=== PATIENT | female | born 1990 | race Caucasian/White ===

== ENCOUNTER → 2016-05-27 | Outpatient (CLI) | payer BC | END | disposition home or self-care (01) | LOC: MMGSC 10:59 | PROVIDERS: ATTEND Internal Medicine | DX: G47.419 Narcolepsy without cataplexy (principal) | CPT/HCPCS: 36415; 81383 ==

== ENCOUNTER → 2016-05-27 | Outpatient (CLI) | payer BC | END | disposition home or self-care (01) | LOC: MMGSC 11:34 | PROVIDERS: ATTEND Family Medicine | DX: R53.83 Other fatigue (principal); I10 Essential (primary) hypertension | CPT/HCPCS: 36415; 82306; 82607; 84439; 84443 ==

== ENCOUNTER → 2016-06-30 | Outpatient (CLI) | payer BC ==
--- NOTE | 2016-06-30 20:25 | PN ---
DATE OF SERVICE: 06/30/2016 This is a 25-year-old lady who has been followed in the sleep center for treatment of narcolepsy. At present patient is on treatment with modafinil, and with medication she feels better during the day; does not feel sleepiness. No side effects from medications. We reviewed results of the previous sleep studies again with the patient with relationship to her pulse rate. The sleep study showed that her basic pulse rate during the test was within normal range, around 60, but she had an increasing pulse rate in REM sleep. [place] Sleepiness Scale is 18. MEDICATIONS: 1. Adderall. Patient takes 10 mg twice a day. 2. Modafinil. She takes around 200 mg once a day. She is trying to take as little as possible. 3. Dyazide. 4. Melatonin. 5. Loratadine. 6. Fish oil. PHYSICAL EXAMINATION: Patient is in no distress. VITAL SIGNS: BP 127/84, HR 87, RR 16. Weight 134.8. BMI 22.8. Temperature 98.0. Oxygen saturation at room air 98%. HEENT: PERRLA, EOMI. Evaluation of oropharynx showed tongue protrudes midline; moderately low position of soft palate. NECK: Supple. No JVD. Thyroid is not palpable. LUNGS: Clear to percussion and to auscultation. Good air exchange. No wheezing or rhonchi. HEART: S1, S2 regular. No murmurs, gallops or rubs. ABDOMEN: Soft and nontender. Bowel sounds are present. No organomegaly appreciated. EXTREMITIES: No clubbing or cyanosis. [employer]: Awake, alert, and oriented x3. Cranial nerves 2 to 7 intact. There is no fasciculation or atrophy noted. No focal deficits observed. IMPRESSION: 1. Narcolepsy, controlled with small dose of Advil and modafinil. 2. History of swelling of the legs. 3. History of hypertension. 4. Status post tumor removed from the finger. 5. Status post hernia repair. 6. History of sinusitis. PLAN: 1. Patient will continue treatment with modafinil and Adderall. 2. Sleep hygiene with regular time in bed for at least 8 hours. 3. No driving if feeling any sleepiness. 4. Monitoring of the blood pressure. 5. Low-sodium diet. Thank you very much for allowing me to participate in the management of your patient. Sincerely, German Venegas MD, PhD, FAASM. Diplomat of [place] [employer], Sleep Medicine Board by [place] [employer], [place] [employer]
== END | disposition home or self-care (01) ==
LOC: SLEEP 13:15
PROVIDERS: ATTEND Internal Medicine
DX: G47.419 Narcolepsy without cataplexy (principal); Z79.899 Other long term (current) drug therapy

== ENCOUNTER 2016-12-04 09:59 | Emergency (ER) | payer BC ==
[2016-12-04] MEDS ORDERED: RX INFO: IV CONTRAST WAS GIVEN 1 EACH MISC MISCELLANE PRN (10:26)
[2016-12-04] MEDS ORDERED: SODIUM CHLORIDE 0.9% 1,000 ML IV ONE (10:26)
[2016-12-04] MEDS ORDERED: SODIUM CHLORIDE 0.9% 1,000 ML IV SCH (10:30)
--- NOTE | 2016-12-04 10:36 | ED ---
General Adult HPI - General Chief complaint: Eye Problems Stated complaint: Left Eye Swelling Time Seen by Provider: 12/04/16 10:18 Source: patient, RN notes reviewed, old records reviewed Mode of arrival: ambulatory Limitations: no limitations - History of Present Illness Initial comments: This is a 25-year-old female presenting to the emergency Department chief complaint of left eye swelling and pain for the past few days. Patient reports that initially started on Tuesday, she went to the urgent care yesterday was given a shot of antibiotics and was discharged on clindamycin. She reports she' s been taking 4 doses of clindamycin was told to come here if it was worsening. Patient reports that some the area seems to move cleared up however there is been some worsening swelling distally from the lesion. She reports that there feels that there is an abscess underneath her eyebrow. Denies any pain with extraocular eye movements. Patient reports that the swelling also is worse over her nose. Patient states that she is no history of diabetes, mild history of hypertension which she occasionally takes water pill for. Patient denies any recent fever or chills, chest pain or shortness breath. - Related Data Home Medications Medication Instructions Recorded Confirmed Clindamycin HCl 300 mg PO QID 12/04/16 12/04/16 Dextroamphetamine/Amphetamine 20 mg PO BID 12/04/16 12/04/16 [Adderall] Norethindrone-E.estradiol-Iron 1 tab PO DAILY 12/04/16 12/04/16 [Junel Fe 1 mg-20 Mcg Tablet] Triamterene-Hctz 37.5-25Mg 1 cap PO DAILY PRN 12/04/16 12/04/16 [Dyazide 37.5-25 Capsule] Previous Rx's Medication Instructions Recorded Tobramycin 0.3% Ophth Soln [Tobrex 1 drop LEFT EYE Q4H #1 bottle 12/04/16 0.3% Ophth Soln] methylPREDNISolone Dose Pack 4 mg PO DIRECTED #21 package 12/04/16 [Medrol Dose Pack] Allergies Allergy/AdvReac Type Severity Reaction Status Date / Time citalopram [From Celexa] AdvReac Altered Verified 12/04/16 12:09 Mental Status Review of Systems ROS Statement: Those systems with pertinent positive or pertinent negative responses have been documented in the HPI. ROS Other: All systems not noted in ROS Statement are negative. Past Medical History Past Medical History: Hypertension History of Any Multi-Drug Resistant Organisms: None Reported Past Surgical History: Hernia Repair Past Psychological History: No Psychological Hx Reported Smoking Status: Never smoker Past Alcohol Use History: Occasional Past Drug Use History: None Reported General Exam - General Exam Comments Initial Comments: This is a 25-year-old female. No acute distress. Limitations: no limitations General appearance: alert, in no apparent distress Head exam: Present: atraumatic, normocephalic, normal inspection Eye exam: Present: normal appearance, PERRL, EOMI, periorbital swelling (Left eye periorbital swelling. There is an area of firmness underneath the left eyebrow. There is some swelling extending into the left side of the nose.). Absent: scleral icterus, conjunctival injection ENT exam: Present: normal exam, mucous membranes moist Neck exam: Present: normal inspection Respiratory exam: Present: normal lung sounds bilaterally. Absent: respiratory distress, wheezes, rales, rhonchi, stridor Cardiovascular Exam: Present: regular rate, normal rhythm, normal heart sounds. Absent: systolic murmur, diastolic murmur, rubs, gallop, clicks GI/Abdominal exam: Present: soft, normal bowel sounds. Absent: distended, tenderness, guarding, rebound, rigid Extremities exam: Present: normal inspection, full ROM, normal capillary refill. Absent: tenderness, pedal edema, joint swelling, calf tenderness Back exam: Present: normal inspection Neurological exam: Present: alert, oriented X3, CN II-XII intact Psychiatric exam: Present: normal affect, normal mood Skin exam: Present: warm, dry, intact, normal color. Absent: rash Course Vital Signs 12/04/16 12/04/16 12/04/16 10:13 11:30 12:32 Temperature 97.9 F 98.0 F Pulse Rate 63 68 72 Respiratory 17 18 17 Rate Blood Pressure 125/79 126/83 129/77 O2 Sat by Pulse 100 98 100 Oximetry Medical Decision Making - Medical Decision Making This is a 25-year-old female presenting to the emergency Department chief complaint of left eye swelling and pain for the past few days. Patient reports that initially started on Tuesday, she went to the urgent care yesterday was given a shot of antibiotics and was discharged on clindamycin. She reports she' s been taking 4 doses of clindamycin was told to come here if it was worsening. Patient reports that some the area seems to move cleared up however there is been some worsening swelling distally from the lesion. Patient has evidence of cellulitis around right lower eyebrow and there is some swelling, likely related to depenedent edema underneath the orbit. No pain with eye movement. No nystagmus. Patient CT face with contrast shows left periorbital cellulitis, no focal abscess for drainage. Patient give IV solumedrol to help with swelling. Patient already is on clindamycin which is good coverage for cellulits. She does report that some areas have became better. Discussed I will discharge patient with medrol dose pack, and patient is to continue clindamycin as directed. Discussed close follow up with PCP and return paramteres were discussed. - Lab Data Result diagrams: 12/04/16 10:30 12/04/16 10:30 Lab Results 12/04/16 12/04/16 12/04/16 Range/Units 10:30 10:30 10:30 WBC 8.9 (3.8-10.6) k/uL RBC 4.21 (3.80-5.40) m/uL Hgb 13.4 (11.4-16.0) gm/dL Hct 39.9 (34.0-46.0) % MCV 94.6 (80.0-100.0) fL MCH 31.9 (25.0-35.0) pg MCHC 33.7 (31.0-37.0) g/dL RDW 13.6 (11.5-15.5) % Plt Count 200 (150-450) k/uL Neutrophils % 63 % Lymphocytes % 29 % Monocytes % 5 % Eosinophils % 1 % Basophils % 1 % Neutrophils # 5.6 (1.3-7.7) k/uL Lymphocytes # 2.6 (1.0-4.8) k/uL Monocytes # 0.4 (0-1.0) k/uL Eosinophils # 0.1 (0-0.7) k/uL Basophils # 0.0 (0-0.2) k/uL Sodium 141 (137-145) mmol/L Potassium 4.2 (3.5-5.1) mmol/L Chloride 108 H (98-107) mmol/L Carbon Dioxide 24 (22-30) mmol/L Anion Gap 9 mmol/L BUN 11 (7-17) mg/dL Creatinine 0.78 (0.52-1.04) mg/dL Est GFR (MDRD) Af Amer >60 (>60 ml/min/1.73 sqM) Est GFR (MDRD) Non-Af >60 (>60 ml/min/1.73 sqM) Glucose 72 L (74-99) mg/dL Plasma Lactic Acid Josue 1.1 (0.7-2.0) mmol/L Calcium 9.4 (8.4-10.2) mg/dL - Radiology Data Radiology results: report reviewed Left periorbital and preseptal edema correlating for cellulitis. Disposition Clinical Impression: Periorbital cellulitis of left eye Disposition: HOME SELF-CARE Condition: Good Additional Instructions: Patient is to continue to take the previously prescribed antibiotics. Do not miss a dose. Patient also can take the prescription steroid. Apply ice over the areas which is possible. If there is pain with any eye movements return to the emergency department and get reevaluated. Prescriptions: methylPREDNISolone Dose Pack [Medrol Dose Pack] 4 mg PO DIRECTED #21 package Tobramycin 0.3% Ophth Soln [Tobrex 0.3% Ophth Soln] 1 drop LEFT EYE Q4H #1 bottle Referrals: Zeenat Bustillo MD [Primary Care Provider] - 1-2 days Time of Disposition: 12:25
[2016-12-04 11:01] LABS: Basophils % (A) 1 %; Eosinophils # (A) 0.1 k/uL (0-0.7); Eosinophils % (A) 1 %; HCT 39.9 % (34.0-46.0); HDW 2.59; HGB 13.4 gm/dL (11.4-16.0); Luc # (Auto) 0.16; Luc % (Auto) 2; Lymphocytes # (A) 2.6 k/uL (1.0-4.8); Lymphocytes % (A) 29 %; MCH 31.9 pg (25.0-35.0); MCHC 33.7 g/dL (31.0-37.0); MCV 94.6 fL (80.0-100.0); Mean Platelet Volume 7.4; Monocytes # (A) 0.4 k/uL (0-1.0); Monocytes % (A) 5 %; Neutrophils # (A) 5.6 k/uL (1.3-7.7); Neutrophils % (A) 63 %; RBC 4.21 m/uL (3.80-5.40); RDW 13.6 % (11.5-15.5); WBC 8.9 k/uL (3.8-10.6); WBC (Perox) 8.63
[2016-12-04 11:07] LABS: Anion Gap 9 mmol/L; Blood Urea Nitrogen 11 mg/dL (7-17); Calcium 9.4 mg/dL (8.4-10.2); Carbon Dioxide 24 mmol/L (22-30); Chloride 108 mmol/L (98-107); Glucose 72 mg/dL (74-99); Non-African American GFR(MDRD) >60 (>60 ml/min/1.73 sqM); Potassium 4.2 mmol/L (3.5-5.1); Sodium 141 mmol/L (137-145)
--- NOTE | 2016-12-04 11:22 | CT ---
EXAMINATION TYPE: CT facial bones w con DATE OF EXAM: 12/04/2016 COMPARISON: NONE HISTORY: Left eye lid swelling-upper lid CT DLP: 468.0 mGycm Automated exposure control for dose reduction was used. CONTRAST: CT scan of the facial bones is performed with IV Contrast, patient injected with 100 mL of Omnipaque 300. TECHNIQUE: CT scan of the sinuses is performed without contrast, axial images are obtained, coronal r eformatted images are also reviewed. FINDINGS: Changes of mild ethmoidal chronic sinusitis noted. The ostiomeatal complex is patent bilate rally on the coronal images. Visualized portion of mastoid air cells show no abnormal opacification. The globes are intact bilate rally. There is preseptal edema on the left. Intraorbital structures have a normal appearance including the globe and optic nerve. Osseous structures intact. IMPRESSION: 1. Left periorbital and preseptal edema correlate for cellulitis.
[2016-12-04 12:34] VITALS: BP 129/77; PULSE 72; RESP 17; TEMP 98
== END 2016-12-04 12:38 | disposition home or self-care (01) ==
LOC: EC 09:59
DX: L03.213 Periorbital cellulitis (principal); I10 Essential (primary) hypertension; Z79.899 Other long term (current) drug therapy; Z88.8 Allergy status to other drugs, medicaments and biological substances
CPT/HCPCS: 36415; 70487; 80048; 83605; 85025; 87040; 96360; 99284

== ENCOUNTER → 2017-02-22 | Outpatient (CLI) | payer BC ==
[2017-02-22 19:41] LABS: Anion Gap 10 mmol/L; Blood Urea Nitrogen 13 mg/dL (7-17); Calcium 9.7 mg/dL (8.4-10.2); Carbon Dioxide 24 mmol/L (22-30); Chloride 105 mmol/L (98-107); Glucose 79 mg/dL (74-99); Non-African American GFR(MDRD) >60 (>60 ml/min/1.73 sqM); Potassium 3.7 mmol/L (3.5-5.1); Sodium 139 mmol/L (137-145)
[2017-02-23 16:47] LABS: ALT 33 U/L (9-52); AST 33 U/L (14-36)
== END | disposition home or self-care (01) ==
LOC: MMGSC 17:09
PROVIDERS: ATTEND Family Medicine
DX: Z51.81 Encounter for therapeutic drug level monitoring (principal)
CPT/HCPCS: 36415; 80048; 84450; 84460

== ENCOUNTER 2020-09-14 18:29 | Inpatient (IN) | payer BC ==
[2020-09-14] MEDS ORDERED: LORazepam 2 MG/ML INJ IV STA (18:42)
--- NOTE | 2020-09-14 18:59 | ED ---
General Adult HPI - General Stated complaint: SOB Time Seen by Provider: 09/14/20 18:33 Source: patient, RN notes reviewed, old records reviewed - History of Present Illness Initial comments: 29-year-old female history of hypertension presenting with acute onset dyspnea all the patient was eating dinner. She states that earlier today she had gone on a long bike ride approximate 40 minutes. She's very active area symptoms beg an suddenly. No previous history of ALLERGIC reaction.. No lower extremity pain or swelling. She states over the past 1 week she's had several episodes where she felt lightheaded and was generally fatigued. She does currently take Dyazide for hypertension. - Related Data Home Medications Medication Instructions Recorded Confirmed Clindamycin HCl 300 mg PO QID 12/04/16 12/04/16 Dextroamphetamine/Amphetamine 20 mg PO BID 12/04/16 12/04/16 [Adderall] Norethindrone-E.estradiol-Iron 1 tab PO DAILY 12/04/16 12/04/16 [Junel Fe 1 mg-20 Mcg Tablet] Triamterene-Hctz 37.5-25Mg 1 cap PO DAILY PRN 12/04/16 12/04/16 [Dyazide 37.5-25 Capsule] Previous Rx's Medication Instructions Recorded Tobramycin 0.3% Ophth Soln [Tobrex 1 drop LEFT EYE Q4H #1 bottle 12/04/16 0.3% Ophth Soln] methylPREDNISolone Dose Pack 4 mg PO DIRECTED #21 package 12/04/16 [Medrol Dose Pack] Allergies Allergy/AdvReac Type Severity Reaction Status Date / Time citalopram [From Celexa] AdvReac Altered Verified 12/04/16 12:09 Mental Status Review of Systems ROS Statement: Those systems with pertinent positive or pertinent negative responses have been documented in the HPI. ROS Other: All systems not noted in ROS Statement are negative. Past Medical History Past Medical History: Hypertension History of Any Multi-Drug Resistant Organisms: None Reported Past Surgical History: Hernia Repair Past Psychological History: No Psychological Hx Reported Past Alcohol Use History: Occasional Past Drug Use History: None Reported General Exam General appearance: alert, anxious, in distress Head exam: Present: atraumatic, normocephalic Eye exam: Present: normal appearance, PERRL ENT exam: Present: normal exam Neck exam: Present: normal inspection. Absent: tenderness, meningismus Respiratory exam: Present: respiratory distress, other (Tachypnea with good air entry) Cardiovascular Exam: Present: regular rate, normal rhythm, other (Distal pulses bilaterally intact) GI/Abdominal exam: Present: soft. Absent: distended, tenderness, guarding Extremities exam: Present: other (Bilateral carpal spasm and cyanosis) Neurological exam: Present: alert, oriented X3, CN II-XII intact. Absent: motor sensory deficit Psychiatric exam: Present: anxious Skin exam: Present: warm, dry, intact. Absent: cyanosis, diaphoretic Course Vital Signs 09/14/20 09/14/20 18:52 19:08 Temperature 99 F Pulse Rate 86 Respiratory 20 20 Rate Blood Pressure 154/108 O2 Sat by Pulse 100 Oximetry EKG Findings - EKG Comments: EKG Findings:: Normal sinus rhythm, rate of 97, NM interval 154, QRS duration 82, QTC [address] segment elevation. Medical Decision Making - Medical Decision Making 29-year-old female with chief complaint of dyspnea. Patient is tachypneic upon arrival with good air entry bilaterally. She has a carpal spasm and contracture of both hands. She's given Ativan, IV fluids, workup is initiated with concern for electrolytes abnormality. She has a hyponatremia, hypomagnesemia, hypokalemia. She is on Dyazide antihypertensive medication which she takes daily. Urinalysis urine drug screen and urine are pending. I did discuss case with Dr. Bautista who will admit. She's given normal saline, magnesium 2 g, and both oral and IV potassium replacement. She will be admitted to a monitored bed with nephrology on consult. - Lab Data Result diagrams: 09/14/20 18:53 09/14/20 18:53 Lab Results 09/14/20 09/14/20 09/14/20 Range/Units 18:53 18:53 18:53 WBC 11.2 H (3.8-10.6) k/uL RBC 4.43 (3.80-5.40) m/uL Hgb 14.0 (11.4-16.0) gm/dL Hct 38.1 (34.0-46.0) % MCV 86.0 (80.0-100.0) fL MCH 31.6 (25.0-35.0) pg MCHC 36.7 (31.0-37.0) g/dL RDW 11.8 (11.5-15.5) % Plt Count 216 (150-450) k/uL MPV 7.1 Neutrophils % 62 % Lymphocytes % 28 % Monocytes % 6 % Eosinophils % 2 % Basophils % 1 % Neutrophils # 7.0 (1.3-7.7) k/uL Lymphocytes # 3.2 (1.0-4.8) k/uL Monocytes # 0.7 (0-1.0) k/uL Eosinophils # 0.2 (0-0.7) k/uL Basophils # 0.1 (0-0.2) k/uL Hyperchromasia Slight PT 10.7 (9.0-12.0) sec INR 1.0 (<1.2) APTT 25.8 (22.0-30.0) sec D-Dimer 0.22 (<0.60) mg/L FEU Sodium 124 L (137-145) mmol/L Potassium 2.7 L* (3.5-5.1) mmol/L Chloride 92 L (98-107) mmol/L Carbon Dioxide 22 (22-30) mmol/L Anion Gap 10 mmol/L BUN 11 (7-17) mg/dL Creatinine 0.61 (0.52-1.04) mg/dL Est GFR (CKD-EPI)AfAm >90 (>60 ml/min/1.73 sqM) Est GFR (CKD-EPI)NonAf >90 (>60 ml/min/1.73 sqM) Glucose 165 H (74-99) mg/dL Plasma Lactic Acid Josue (0.7-2.0) mmol/L Calcium 9.2 (8.4-10.2) mg/dL Magnesium 1.1 L (1.6-2.3) mg/dL Total Bilirubin 0.7 (0.2-1.3) mg/dL AST 37 H (14-36) U/L ALT 25 (4-34) U/L Alkaline Phosphatase 85 (38-126) U/L Troponin I (0.000-0.034) ng/mL Total Protein 6.4 (6.3-8.2) g/dL Albumin 4.1 (3.5-5.0) g/dL 09/14/20 09/14/20 Range/Units 18:53 18:53 WBC (3.8-10.6) k/uL RBC (3.80-5.40) m/uL Hgb (11.4-16.0) gm/dL Hct (34.0-46.0) % MCV (80.0-100.0) fL MCH (25.0-35.0) pg MCHC (31.0-37.0) g/dL RDW (11.5-15.5) % Plt Count (150-450) k/uL MPV Neutrophils % % Lymphocytes % % Monocytes % % Eosinophils % % Basophils % % Neutrophils # (1.3-7.7) k/uL Lymphocytes # (1.0-4.8) k/uL Monocytes # (0-1.0) k/uL Eosinophils # (0-0.7) k/uL Basophils # (0-0.2) k/uL Hyperchromasia PT (9.0-12.0) sec INR (<1.2) APTT (22.0-30.0) sec D-Dimer (<0.60) mg/L FEU Sodium (137-145) mmol/L Potassium (3.5-5.1) mmol/L Chloride (98-107) mmol/L Carbon Dioxide (22-30) mmol/L Anion Gap mmol/L BUN (7-17) mg/dL Creatinine (0.52-1.04) mg/dL Est GFR (CKD-EPI)AfAm (>60 ml/min/1.73 sqM) Est GFR (CKD-EPI)NonAf (>60 ml/min/1.73 sqM) Glucose (74-99) mg/dL Plasma Lactic Acid Josue 2.2 H* (0.7-2.0) mmol/L Calcium (8.4-10.2) mg/dL Magnesium (1.6-2.3) mg/dL Total Bilirubin (0.2-1.3) mg/dL AST (14-36) U/L ALT (4-34) U/L Alkaline Phosphatase (38-126) U/L Troponin I <0.012 (0.000-0.034) ng/mL Total Protein (6.3-8.2) g/dL Albumin (3.5-5.0) g/dL Critical Care Time Critical Care Time: Yes Total Critical Care Time: 35 Disposition Clinical Impression: Hyponatremia, Hypomagnesemia, Hypokalemia Disposition: ADMITTED IP TO THIS [facility] Condition: Stable Is patient prescribed a controlled substance at d/c from ED?: No Referrals: Zeenat Busitllo MD [Primary Care Provider] - 1-2 days Decision to Admit Reason: Admit from EC Decision Date: 09/14/20 Decision Time: 19:57
[2020-09-14 19:24] LABS: ALT 25 U/L (4-34); AST 37 U/L (14-36); African American GFR (CKD) >90 (>60 ml/min/1.73 sqM); Albumin 4.1 g/dL (3.5-5.0); Alkaline Phosphatase 85 U/L (38-126); Anion Gap 10 mmol/L; Blood Urea Nitrogen 11 mg/dL (7-17); Calcium 9.2 mg/dL (8.4-10.2); Carbon Dioxide 22 mmol/L (22-30); Chloride 92 mmol/L (98-107); Glucose 165 mg/dL (74-99); Magnesium 1.1 mg/dL (1.6-2.3); Non-African American GFR(CKD) >90 (>60 ml/min/1.73 sqM); Sodium 124 mmol/L (137-145); Total Bilirubin 0.7 mg/dL (0.2-1.3); Total Protein 6.4 g/dL (6.3-8.2)
[2020-09-14 19:26] LABS: Basophils # (A) 0.1 k/uL (0-0.2); Basophils % (A) 1 %; D-Dimer 0.22 mg/L FEU (<0.60); Eosinophils # (A) 0.2 k/uL (0-0.7); Eosinophils % (A) 2 %; HCT 38.1 % (34.0-46.0); Hyperchromasia Slight; Lymphocytes # (A) 3.2 k/uL (1.0-4.8); Lymphocytes % (A) 28 %; MCH 31.6 pg (25.0-35.0); MCHC 36.7 g/dL (31.0-37.0); Mean Platelet Volume 7.1; Monocytes # (A) 0.7 k/uL (0-1.0); Monocytes % (A) 6 %; Neutrophils % (A) 62 %; Partial Thromboplastin Time 25.8 sec (22.0-30.0); Platelet Count 216 k/uL (150-450); Prothrombin Time 10.7 sec (9.0-12.0); RBC 4.43 m/uL (3.80-5.40); RDW 11.8 % (11.5-15.5); WBC 11.2 k/uL (3.8-10.6)
[2020-09-14 19:27] LABS: Potassium 2.7 mmol/L (3.5-5.1)
[2020-09-14] MEDS ORDERED: POTASSIUM CHLORIDE ER 20 MEQ TAB.ER PO STA (19:30)
[2020-09-14] MEDS: MAGNESIUM SULFATE-D5W PMX 1 GM in DEXTROSE/WATER 1 100ML.BAG IVPB SCH ×2 (19:44→21:02)
[2020-09-14] MEDS ORDERED: SODIUM CHLORIDE 0.9% 1,000 ML IV SCH (19:45)
[2020-09-14] MEDS ORDERED: SODIUM CHLORIDE 0.9% 1,000 ML IV ONE (19:51)
[2020-09-14] MEDS ORDERED: ACETAMINOPHEN TAB 325 MG TAB PO PRN (19:52)
[2020-09-14] MEDS ORDERED: NALOXONE 0.4 MG/ML 1 ML VIAL IV PRN (19:52)
[2020-09-14] MEDS: POTASSIUM CHLORIDE 10 MEQ in WATER FOR INJECTION 1 100ML.BAG IVPB SCH ×3 (19:52→22:41)
[2020-09-14 20:07] LABS: Appearance,Urine Clear (Clear); Bilirubin,Urine Negative (Negative); Blood,Urine Negative (Negative); Color,Urine Colorless; Glucose,Urine (UA) Negative (Negative); Ketones,Urine Negative (Negative); Leukocyte Esterase,Urine Negative (Negative); Nitrite,Urine Negative (Negative); PH, Urine 6.5 (5.0-8.0); Protein,Urine Negative (Negative); Specific Gravity,Urine 1.003 (1.001-1.035); Urobilinogen,Urine <2.0 mg/dL (<2.0)
[2020-09-14 20:16] LABS: Amphetamine Screen,Urine Detected (NotDetected); Barbiturate Screen,Urine Not Detected (NotDetected); Benzodiazepines Screen,Urine Not Detected (NotDetected); Cocaine Screen,Urine Not Detected (NotDetected); Methadone Screen, Urine Not Detected (NotDetected); Opiate Screen,Urine Not Detected (NotDetected); Oxycodone Screen, Urine Not Detected (NotDetected); Phencyclidine Screen,Urine Not Detected (NotDetected); Tricyclic Antidepressant,Urine Not Detected (NotDetected); Urn Cannabinoid Scrn Not Detected (NotDetected)
--- NOTE | 2020-09-14 21:05 | XR ---
EXAMINATION TYPE: XR chest 2V DATE OF EXAM: 09/14/2020 COMPARISON: NONE HISTORY: Difficulty breathing TECHNIQUE: 2 views FINDINGS: Heart and mediastinum are normal. Lungs are clear. Diaphragm is normal. Bony thorax is inta ct. IMPRESSION: Normal chest.
--- NOTE | 2020-09-14 22:22 | P.HPIM ---
History of Present Illness H&P Date: 09/14/20 The patient is a 29-year-old female with a PMH of narcolepsy and hypertension (diagnosed at 21 years old) who presented to the emergency room with complaints of limb rigidity and diffuse paresthesias. The patient reports that she was in her usual state of health this morning and went on to 45 minute bike ride with her and that shortly after returning home at 5 PM, she began developing tingling of her hands and feet which then progressed to her face, and down to her trunk and expanding to the rest of her body. She then developed spasms of her bilateral upper extremities and neck with rigidity and inability to use upper extremities. She reported spasm of the lower extremity muscles as well but was able to ambulate with some assistance. Her symptoms peaked at around 5:45 PM at which time her activated EMS. The patient notes that she had been drinking water throughout the day today, and consumed more than usual at about 2.5-3 gallons total volume since waking up. She also had a 500 ML bottle of Powerade. The patient notes she normally drinks 1-2 gallons of water daily. She also reports using her diuretic sporadically as needed depending upon her daily blood pressure readings. She last took it on Tuesday 09/12. At time of interview, she reported that her rigidity had improved but she continues to feel tingling and numbness throughout but most profoundly in her hands and feet. She reports feeling fatigued but denied unilateral weakness. Denied visual compla ints. Denied headaches, loss of consciousness, or seizures. Denied chest discomfort, shortness of breath, fever, chills, cough. Denied nausea, vomiting, abdominal pain, diarrhea. In the emergency room a chest x-ray was unremarkable with EKG showing normal sinus rhythm at 97 bpm as reviewed by me. Laboratory evaluation revealed leukocytosis of 11.2 along with significant electrolyte derangements with sodium 124, potassium 2.7, chloride 92, glucose 165, lactic acid 2.2, magnesium 1.1, AST 27, CK 217, UA unremarkable. Review of systems: Pertinent positives and negatives as discussed in HPI, a complete review of systems was performed and all other systems are negative. Physical examination: General: non toxic, no distress, appears at stated age, normal weight Derm: no unusual rashes/lesions no unusual ecchymoses, warm, dry Head: atraumatic, normocephalic, symmetric Eyes: EOMI, no lid lag, anicteric sclera, pupils equal round reactive to light ENT: Nose and ears atraumatic, no thrush, no pharyngeal erythema Neck: No thyromegaly, no cervical lymphadenopathy, trachea midline, supple Mouth: no lip lesion, mucus membranes moist Cardiovascular: S1S2 reg, no murmur, positive posterior tibial pulse bilateral, no edema, capillary refill less than 2 seconds Lungs: CTA bilateral, no rhonchi, no rales , no accessory muscle use Abdominal: soft, nontender to palpation, no guarding, no appreciable organomegaly, normal bowel sounds Ext: no gross muscle atrophy, muscle strength 4 out of 5 in all 4 extremities grossly, no contractures Neuro: CN II-XI grossly intact, light touch intact all 4 extremities, finger to nose within normal limits, bilateral proximal upper extremity rigidity noted Psych: Alert, oriented, appropriate affect Assessment/plan Diffuse spasms with severe electrolyte derangements: Hypokalemia, hyponatremia, hypomagnesemia - suspected secondary to polydipsia in setting of diuretic use -Replace potassium and magnesium -Nephrology consulted -Hold off on IV fluids at this time -Patient advised to follow-up with endocrinology and nephrology following discharge for further workup regarding secondary hypertension -Fall, seizure precautions -Hold diuretics -Obtain urine studies along with serum osmolality -Avoid over correction of sodium Leukocytosis, likely secondary to acute stressor -No signs of active infection at this time -Monitor for now DVT prophylaxis -Heparin subq The patient is admitted with an anticipated greater than 2 midnight stay for e valuation of electrolyte derangements CODE STATUS: Full Code Discussed with: Patient Anticipated discharge date: 2-[address]: Home A total of 40 minutes was spent on the care of this complex patient more than 50% of the time was spent in counseling and care coordination. Past Medical History Past Medical History: Hypertension History of Any Multi-Drug Resistant Organisms: None Reported Past Surgical History: Hernia Repair Past Psychological History: No Psychological Hx Reported Past Alcohol Use History: Occasional Past Drug Use History: None Reported Medications and Allergies Home Medications Medication Instructions Recorded Confirmed Type Norethindrone-E.estradiol-Iron 1 tab PO DAILY 12/04/16 09/14/20 History [Junel Fe 1 mg-20 Mcg Tablet] Triamterene-Hctz 37.5-25Mg 1 cap PO DAILY PRN 12/04/16 09/14/20 History [Dyazide 37.5-25 Capsule] Cyanocobalamin (Vitamin B-12) 1,000 mcg PO DAILY 09/14/20 09/14/20 History [Vitamin B-12] Dextroamphetamine/Amphetamine 30 mg PO BID 09/14/20 09/14/20 History [Adderall] Glucosamine Sulfate 500 mg PO DAILY 09/14/20 09/14/20 History Loratadine [Claritin] 10 mg PO DAILY 09/14/20 09/14/20 History [place]-3 Fatty Acids/Fish Oil [Fish 1 cap PO DAILY 09/14/20 09/14/20 History Oil 1,000 mg Softgel] Prevdnt 5000 1.5-5% Toothpaste 1 applic DENTAL BID 09/14/20 09/14/20 History Allergies Allergy/AdvReac Type Severity Reaction Status Date / Time citalopram [From Celexa] AdvReac Altered Verified 09/14/20 21:11 Mental Status Physical Exam Vitals: Vital Signs Temp Pulse Resp BP Pulse Ox 09/14/20 19:08 20 09/14/20 18:52 99 F 86 20 154/108 100 Intake and Output 09/14/20 09/14/20 09/14/20 06:59 14:59 22:59 Other: Weight 58.967 kg Results CBC & Chem 7: 09/14/20 18:53 09/14/20 18:53 Labs: Abnormal Lab Results - Last 24 Hours (Table) 09/14/20 09/14/20 09/14/20 Range/Units 18:53 18:53 18:53 WBC 11.2 H (3.8-10.6) k/uL Sodium 124 L (137-145) mmol/L Potassium 2.7 L* (3.5-5.1) mmol/L Chloride 92 L (98-107) mmol/L Glucose 165 H (74-99) mg/dL Plasma Lactic Acid Josue 2.2 H* (0.7-2.0) mmol/L Magnesium 1.1 L (1.6-2.3) mg/dL AST 37 H (14-36) U/L Creatine Kinase (30-135) U/L Ur Amphetamines Screen (NotDetected) 09/14/20 09/14/20 Range/Units 18:53 18:53 WBC (3.8-10.6) k/uL Sodium (137-145) mmol/L Potassium (3.5-5.1) mmol/L Chloride (98-107) mmol/L Glucose (74-99) mg/dL Plasma Lactic Acid Josue (0.7-2.0) mmol/L Magnesium (1.6-2.3) mg/dL AST (14-36) U/L Creatine Kinase 217 H (30-135) U/L Ur Amphetamines Screen Detected H (NotDetected)
[2020-09-15] MEDS: HEPARIN SODIUM,PORCINE/PF 5,000 UNIT/0.5 ML SYRINGE SQ SCH ×2 (00:31→07:44)
[2020-09-15] MEDS: POTASSIUM CHLORIDE 10 MEQ in WATER FOR INJECTION 1 100ML.BAG IVPB SCH (00:31)
[2020-09-15 02:27] LABS: African American GFR (CKD) >90 (>60 ml/min/1.73 sqM); Anion Gap 6 mmol/L; Blood Urea Nitrogen 9 mg/dL (7-17); Calcium 8.5 mg/dL (8.4-10.2); Carbon Dioxide 24 mmol/L (22-30); Chloride 106 mmol/L (98-107); Glucose 115 mg/dL (74-99); Non-African American GFR(CKD) >90 (>60 ml/min/1.73 sqM); Potassium 4.1 mmol/L (3.5-5.1); Sodium 136 mmol/L (137-145)
[2020-09-15 04:19] LABS: HCT 37.7 % (34.0-46.0); HGB 13.5 gm/dL (11.4-16.0); MCH 31.3 pg (25.0-35.0); MCHC 35.8 g/dL (31.0-37.0); MCV 87.4 fL (80.0-100.0); Mean Platelet Volume 6.8; Platelet Count 207 k/uL (150-450); RBC 4.31 m/uL (3.80-5.40); WBC 8.4 k/uL (3.8-10.6)
[2020-09-15 04:30] LABS: African American GFR (CKD) >90 (>60 ml/min/1.73 sqM); Anion Gap 4 mmol/L; Blood Urea Nitrogen 8 mg/dL (7-17); Calcium 8.3 mg/dL (8.4-10.2); Carbon Dioxide 24 mmol/L (22-30); Chloride 110 mmol/L (98-107); Glucose 91 mg/dL (74-99); Non-African American GFR(CKD) >90 (>60 ml/min/1.73 sqM); Potassium 3.8 mmol/L (3.5-5.1); Sodium 138 mmol/L (137-145)
[2020-09-15 06:09] VITALS: RESP 18
[2020-09-15 11:50] LABS: African American GFR (CKD) >90 (>60 ml/min/1.73 sqM); Anion Gap 4 mmol/L; Blood Urea Nitrogen 6 mg/dL (7-17); Calcium 8.7 mg/dL (8.4-10.2); Carbon Dioxide 27 mmol/L (22-30); Chloride 109 mmol/L (98-107); Glucose 84 mg/dL (74-99); Non-African American GFR(CKD) >90 (>60 ml/min/1.73 sqM); Potassium 4.1 mmol/L (3.5-5.1); Sodium 140 mmol/L (137-145)
--- NOTE | 2020-09-15 13:28 | P.DS ---
Providers Date of admission: 09/14/20 19:52 Expected date of discharge: 09/15/20 Attending physician: Pedrito Bautista MD Consults: 09/14/20 19:53 Consult Physician Routine Consulting Provider: Tiarra Voss Consult Reason/Comments: Electrolytes abnormalities Do you want consulting provider notified?: Yes Primary care physician: Zeenat Bustillo [facility] Course: Discharge Diagnosis: Muscle spasms/rigidity with parathesias, resolved after correction of electrolyte abnormalities Hyponatremia Hypomagnesemia Hypokalemia Hypochloremia Dehydration secondary to use of diuretics Hospital Course: Patient is a 29-year-old female with a past medical history of narcolepsy and hypertension. She presented to the emergency department on 09/14/20 with a chief complaint of muscle rigidity and diffuse paresthesias. Patient reports normal state of health went on an extended bike ride with her and shortly after returning home she developed tingling in her hands and feet which then progressed to her face followed by the remainder of her body. Patient states shortly after she developed spasms of her upper and lower extremities with neck rigidity and inability to use her upper extremities due to contracted/spasmed muscles. Patient states that she had been drinking water throughout the day and consume more than usual drinking approximately 2.5-3 gallons of water and one bottle of Powerade. Patient states in addition to this she had been using her diuretic, Dyazide prescribed for hypertension. Upon arrival to the emergency department patient was found to have significant electrolyte abnormalities. Sodium 124, potassium 2.7, chloride 92, and magnesium of 1.1. In addition patient was also found to have an elevated lactate of 2.1 and CPK of 217. Patient was treated with 1 L bolus 0.9% normal saline and abnormal electrolyte values were replaced. Nephrology was consulted and also evaluated patient. Patient's symptoms of muscle spasms/rigidity and tingling completely resided. Repeat labs revealed resolution of abnormal electrolyte values and repeat lactate less than 0.5. Obtained repeat set of labs to ensure resolution of abnormalities. Patient's symptoms remain resolved. Dyazide discontinued. Patient being started on Norvasc 5 mg daily and instructed to monitor her blood pressures twice daily and keep a log to follow up outpatient with her PCP Dr. Bustillo as well as Nephrology Dr. Voss whom is recommending outpatient MRA of the kidneys. Physical exam: Patient seen and examined at bedside. Vital signs reviewed and stable. General: Nontoxic, no distress and appears stated age. Derm: Skin warm and dry, normal coloration for ethnicity. Head: Atraumatic, normocephalic and symmetric. Eyes: EOMs intact, no lid lag, and anicteric sclera Mouth: no lip lesions, mucus membranes moist Cardiovascular: regular rate and rhythm with normal S1S2, no murmur, positive posterior tibial pulses bilaterally, and cap refill < 2 seconds. Lungs: Respirations even, regular, and unlabored on room air. Lungs CTA bilaterally, no rhonchi, no rales, no wheezing, and no accessory muscle usage. Abdominal: soft, nontender to palpation, no guarding, no appreciable organomegaly Ext: ROM intact. No gross muscle atrophy, no edema, no contractures Neuro: Speech clear, face symmetrical and CN II-XII grossly intact with no noted focal neuro deficits Psych: Alert and oriented to person, place, time, and situation. Appropriate and pleasant affect. A total of 45 minutes of time were spent preparing this complex discharge summary. Patient Condition at Discharge: Stable Plan - Discharge Summary New Discharge Prescriptions: New amLODIPine [Norvasc] 5 mg PO DAILY 30 Days #30 tab Continue Norethindrone-E.estradiol-Iron [Junel Fe 1 mg-20 Mcg Tablet] 1 tab PO DAILY [place]-3 Fatty Acids/Fish Oil [Fish Oil 1,000 mg Softgel] 1 cap PO DAILY Cyanocobalamin (Vitamin B-12) [Vitamin B-12] 1,000 mcg PO DAILY Prevdnt 5000 1.5-5% Toothpaste 1 applic DENTAL BID Dextroamphetamine/Amphetamine [Adderall] 30 mg PO BID Loratadine [Claritin] 10 mg PO DAILY Glucosamine Sulfate 500 mg PO DAILY Discontinued Triamterene-Hctz 37.5-25Mg [Dyazide 37.5-25 Capsule] 1 cap PO DAILY PRN PRN Reason: Blood Pressure - High Discharge Medication List Norethindrone-E.estradiol-Iron [Junel Fe 1 mg-20 Mcg Tablet] 1 tab PO DAILY 12/04/16 [History] Cyanocobalamin (Vitamin B-12) [Vitamin B-12] 1,000 mcg PO DAILY 09/14/20 [History] Dextroamphetamine/Amphetamine [Adderall] 30 mg PO BID 09/14/20 [History] Glucosamine Sulfate 500 mg PO DAILY 09/14/20 [History] Loratadine [Claritin] 10 mg PO DAILY 09/14/20 [History] [place]-3 Fatty Acids/Fish Oil [Fish Oil 1,000 mg Softgel] 1 cap PO DAILY 09/14/20 [History] Prevdnt 5000 1.5-5% Toothpaste 1 applic DENTAL BID 09/14/20 [History] amLODIPine [Norvasc] 5 mg PO DAILY 30 Days #30 tab 09/15/20 [Rx] Follow up Appointment(s)/Referral(s): Tiarra Voss MD [STAFF PHYSICIAN] - 1 Week Zeenat Bustillo MD [Primary Care Provider] - 1-2 days Ambulatory/Diagnostic Orders: Basic Metabolic Panel [LAB.AMB] Time Frame: 3 Days, Location: None Selected Magnesium [LAB.AMB] Time Frame: 3 Days, Location: None Selected Activity/Diet/Wound Care/Special Instructions: Special Instructions: We have discontinued your Dyazide and prescribed you Norvasc for management of your Hypertension. It is important for you to monitor your blood pressure twice daily and document these findings in a journal to bring with you to your next appointment with her primary care provider, Dr Bustillo. . Discharge Disposition: HOME SELF-CARE
[2020-09-15 14:13] LABS: Hemoglobin A1C 4.6 % (4.0-6.0)
[2020-09-15 14:52] VITALS: BP 136/94; PULSE 76; TEMP 97.9
--- NOTE | 2020-09-15 20:43 | CONS ---
CONSULTATION REASON FOR CONSULT: Hyponatremia. HISTORY OF PRESENT ILLNESS: The patient is a 29-year-old female who was admitted to the hospital with complaints of numbness, and tingling on the face and the legs. She stated that she was very weak and she had been out on a bike ride and had been drinking large amounts of water. She also has history of hypertension and has been maintained on Dyazide for a few years now. The patient did admit to previous episodes of tingling a few days ago. She does not have a prior history of low sodium. No history of nausea, vomiting, abdominal pain or diarrhea. Serum sodium was 124 on admission. The patient received IV fluids initially. Currently they are discontinued. Sodium is up to 140 today. No new medication that was started recently. PAST MEDICAL HISTORY: Hypertension diagnosed in the early 20s. SOCIAL HISTORY: Negative for smoking, drug abuse or alcohol abuse. PAST SURGICAL HISTORY: Hernia repair. MEDICATIONS: Medications prior to admission included iron, Dyazide, vitamin B12, Adderall, glucosamine, Claritin. ALLERGIES: INCLUDE CELEXA. EXAMINATION: Examination of the heart S1, S2. Examination of the lungs, bilateral breath sounds are heard. Abdomen is soft, nontender. [employer] exam grossly intact. Blood pressure was blood pressure was 117/90, heart rate 80 per minute. She is afebrile. MMODL / IJN: [id number] /
--- NOTE | 2020-09-15 20:48 | CONS ---
CONSULTATION ADDENDUM: LABS: Lab show sodium 140, potassium 4.1, chloride 109, BUN 6, serum creatinine 0.6, hemoglobin 13.5. UA shows no blood or protein. Amphetamines detected on urinalysis. Wiley virus PCR is negative. ASSESSMENT: 1. Hypovolemic hyponatremia currently improved with saline administration. The serum sodium, however, has increased up to 140. The patient is encouraged to maintain water intake. I believe it was an acute onset of hyponatremia. She will need repeat labs to be done as outpatient. I will also hold off on the Dyazide for now. 2. Hypertension with fairly early onset of hypertension. Need to rule out secondary causes. At this time, hold off on Dyazide given the hyponatremia. Patient can use Norvasc if her blood pressure is elevated. We will also check renal aldosterone levels and consider an MRA of the renal arteries which can be ordered as outpatient for workup for hypertension or possible underlying renal artery stenosis. 3. Numbness and tingling secondary to hyponatremia, currently resolved. PLAN: Follow up as outpatient in about one week's time. Maintain adequate hydration. Hold off on Dyazide for now. May use Norvasc if needed and workup for secondary causes of hypertension which can be ordered as outpatient. Aldosterone renal level will be ordered from labs drawn already. The MRA can be ordered as outpatient. MMODL / IJN: [id number] /
== END 2020-09-15 14:00 | disposition home or self-care (01) | DRG 641 ==
LOC: EC 18:29 → 3SCARD 19:52 → UNDODISIN 09-15 14:02
PROVIDERS: ADMIT Internal Medicine; ATTEND Internal Medicine
DX: E87.1 Hypo-osmolality and hyponatremia (principal); I10 Essential (primary) hypertension; E83.42 Hypomagnesemia; E86.1 Hypovolemia; E87.6 Hypokalemia; G47.419 Narcolepsy without cataplexy; M62.838 Other muscle spasm; E86.0 Dehydration; E87.8 Other disorders of electrolyte and fluid balance, not elsewhere classified; R79.89 Other specified abnormal findings of blood chemistry; Z20.822 Contact with and (suspected) exposure to COVID-19; Z79.2 Long term (current) use of antibiotics; Z88.8 Allergy status to other drugs, medicaments and biological substances
CPT/HCPCS: 36415; 71046; 80048; 80053; 80306; 81003; 81025; 82088; 82550; 82570; 83036; 83605; 83735; 83930; 83935; 84244; 84300; 84443; 84484; 84560; 85025; 85027; 85379; 85610; 85730; 87635; 93005; 96374; 99291

== ENCOUNTER → 2020-09-18 | Outpatient (CLI) | payer BC ==
[2020-09-18 18:34] LABS: African American GFR (CKD) 113.9 (60.0-200.0); Anion Gap 11.1 mmol/L (4.00-12.00); BUN/Creat Ratio 11.25 Ratio (12.00-20.00); Calcium 10.2 mg/dL (8.7-10.3); Carbon Dioxide 20.9 mmol/L (21.6-31.8); Non-African American GFR(CKD) 98.2 (60.0-200.0); Potassium 4.2 mmol/L (3.5-5.5)
== END | disposition home or self-care (01) ==
LOC: LABWHC1 09:16
PROVIDERS: ATTEND Nurse Practitioner
DX: E83.42 Hypomagnesemia (principal)
CPT/HCPCS: 36415; 80048; 83735

== ENCOUNTER → 2020-10-03 | Outpatient (CLI) | payer BC ==
--- NOTE | 2020-10-03 11:52 | MR ---
MR angiogram of the renal arteries with and without contrast HISTORY: I 10, hypertension Multiplanar multisequence and postcontrast images obtained through the abdominal aorta with attention to the renal arteries following 6 cc Gadavist IV. Three-dimensional reconstructions were performed o n an alternate workstation. Kidneys show no mass. There is no evident hydronephrosis. Right kidney measures approximately 11 cm, left kidney approximately 10 cm. The abdominal aorta, common iliac, internal and external iliac arteries are patent. Renal arteries ar e patent, kidneys show normal enhancement. Postcontrast images show some decreased signal near the or igin of the right renal artery at the site of the change in course. Phase contrast images show no sig nal drop at the origin of the right renal artery, origin is somewhat anterior anterolateral from the abdominal aorta, there is somewhat of a kink present. The adrenal glands show no mass. Liver, gallbladder, spleen, pancreas are within normal limits. There is no retroperitoneal adenopathy. Aorta shows normal caliber. Superior mesenteric, inferior mesenter ic arteries, iliac axis are patent. Descending thoracic aorta are remarkable. No evident retroperiton eal adenopathy. Bone marrow signal unremarkable as visualized. IMPRESSION: Apparent signal change at the origin of the right renal artery suggesting a possible narr owing, renal artery Doppler duplex may be of benefit to assess for elevated velocity, no signal drop noted on phase contrast images to suggest significant stenosis
== END | disposition home or self-care (01) ==
LOC: RADMRIMAIN 08:12
PROVIDERS: ATTEND Nurse Practitioner Family
DX: I10 Essential (primary) hypertension (principal)
CPT/HCPCS: 74185; A9585

== ENCOUNTER → 2021-01-14 | Outpatient (CLI) | payer BC ==
[2021-01-14 21:37] LABS: Magnesium 1.7 mg/dL (1.5-2.4)
[2021-01-15 11:06] LABS: African American GFR (CKD) 119.9 (60.0-200.0); Anion Gap 13.7 mmol/L (4.00-12.00); BUN/Creat Ratio 19.16 Ratio (12.00-20.00); Blood Urea Nitrogen 14.6 mg/dL (9.0-27.0); Calcium 9.7 mg/dL (8.7-10.3); Carbon Dioxide 21.2 mmol/L (21.6-31.8); Non-African American GFR(CKD) 103.5 (60.0-200.0); Potassium 3.8 mmol/L (3.5-5.5)
== END | disposition home or self-care (01) ==
LOC: LABWHC1 12:32
PROVIDERS: ATTEND Nurse Practitioner Family
DX: E87.8 Other disorders of electrolyte and fluid balance, not elsewhere classified (principal)
CPT/HCPCS: 36415; 80048; 83735

== ENCOUNTER → 2021-02-05 | Outpatient (CLI) | payer BC ==
--- NOTE | 2021-02-06 09:15 | CT ---
EXAMINATION TYPE: CT angio abdomen DATE OF EXAM: 02/06/2021 9:09 AM COMPARISON: Correlation MRI 10/03/2020 HISTORY: 30-year-old female I10, hypertension. CT DLP: 438 mGycm Automated exposure control for dose reduction was used. TECHNIQUE: CT abdomen without and with IV Contrast, patient injected with 100 mL of Isovue 370. Arter ial phase imaging was utilized. Coronal and sagittal MIP reconstructions generated. 3-D reconstructio ns generated on a dedicated independent workstation. . FINDINGS: Heart normal size without pericardial effusion. Lung bases clear without pleural effusion. Early arterial phase imaging of the liver, gallbladder, adrenal glands, spleen, and pancreas within n ormal limits. Bilateral extrarenal pelves in the kidneys. No dilated small bowel, free fluid, or free air. No mesenteric or retroperitoneal lymphadenopathy. The abdominal aorta is normal caliber. Celiac axis and SMA are patent. Woo left renal artery. There are 2 right renal arteries. The smaller, more inferiorly located renal artery has a takeoff fro m the anterior margin of the aorta. Both of these renal arteries show early bifurcations. No signific ant arterial narrowing is identified. The MARTHA is patent. Pelvis not imaged. Bones: No osseous destructive process. IMPRESSION: 1. 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 THE SMALLER, MORE INFERIORLY LOCATED RIGHT RENAL ARTERY HAS A TAKEOFF FROM THE ANTERIOR MARGIN OF THE AORTA. BOTH OF THESE RIGHT RENAL ARTERIES SHOW EARLY BIFURCATIONS. 2. NO ANGIOGRAPHIC EVIDENCE FOR RENAL ARTERY STENOSIS ON EITHER SIDE.
== END | disposition home or self-care (01) ==
LOC: RADCTMAIN 16:14
PROVIDERS: ATTEND Internal Medicine Nephrology
DX: Q27.2 Other congenital malformations of renal artery (principal); I10 Essential (primary) hypertension
CPT/HCPCS: 74175; Q9967

== ENCOUNTER 2022-11-07 21:07 | Inpatient (IN) | payer BC ==
[2022-11-07] MEDS ORDERED: SODIUM CHLORIDE 0.9% 500 ML 500 ML IV STA ×2 (21:42→23:12)
[2022-11-07] MEDS ORDERED: LORazepam 2 MG/ML INJ IV STA (21:42)
[2022-11-07] MEDS ORDERED: SODIUM CHLORIDE 0.9% 1,000 ML IV STA (21:42)
[2022-11-07] MEDS ORDERED: diphenhydrAMINE 50 MG/ML 1 ML VIAL IVP STA (21:42)
[2022-11-07 22:18] LABS: Basophils % (A) 1 %; Eosinophils # (A) 0.1 k/uL (0-0.7); Eosinophils % (A) 1 %; HCT 37.4 % (34.0-46.0); HGB 12.9 gm/dL (11.4-16.0); Lymphocytes # (A) 3.3 k/uL (1.0-4.8); Lymphocytes % (A) 40 %; MCH 30.8 pg (25.0-35.0); MCHC 34.4 g/dL (31.0-37.0); MCV 89.6 fL (80.0-100.0); Mean Platelet Volume 7.9; Monocytes # (A) 0.5 k/uL (0-1.0); Monocytes % (A) 7 %; Neutrophils # (A) 4.1 k/uL (1.3-7.7); Neutrophils % (A) 49 %; Platelet Count 209 k/uL (150-450); RBC 4.18 m/uL (3.80-5.40); RDW 12.5 % (11.5-15.5); WBC 8.2 k/uL (3.8-10.6)
[2022-11-07 22:30] LABS: Appearance,Urine Clear (Clear); Bilirubin,Urine Negative (Negative); Color,Urine Colorless; Glucose,Urine (UA) Negative (Negative); Ketones,Urine Negative (Negative); Protein,Urine Negative (Negative); Specific Gravity,Urine <1.005 (1.001-1.035)
[2022-11-07 22:31] LABS: Blood,Urine Trace (Negative); Leukocyte Esterase,Urine Negative (Negative); Nitrite,Urine Negative (Negative); Urobilinogen,Urine <2.0 mg/dL (<2.0)
[2022-11-07 22:36] LABS: Amphetamine Screen,Urine Detected (NotDetected); Barbiturate Screen,Urine Not Detected (NotDetected); Benzodiazepines Screen,Urine Not Detected (NotDetected); Cocaine Screen,Urine Not Detected (NotDetected); Methadone Screen, Urine Not Detected (NotDetected); Opiate Screen,Urine Not Detected (NotDetected); Oxycodone Screen, Urine Not Detected (NotDetected); Phencyclidine Screen,Urine Not Detected (NotDetected); Tricyclic Antidepressant,Urine Not Detected (NotDetected); Urn Cannabinoid Scrn Not Detected (NotDetected)
[2022-11-07 22:39] LABS: ALT 23 U/L (4-34); AST 32 U/L (14-36); Acetaminophen <10.0 ug/mL; African American GFR (CKD) >90 (>60 ml/min/1.73 sqM); Albumin 4.7 g/dL (3.5-5.0); Alcohol <10 mg/dL; Alkaline Phosphatase 55 U/L (38-126); Anion Gap 13 mmol/L; Blood Urea Nitrogen 15 mg/dL (7-17); Calcium 9.8 mg/dL (8.4-10.2); Carbon Dioxide 23 mmol/L (22-30); Chloride 98 mmol/L (98-107); Glucose 126 mg/dL (74-99); Lipase 105 U/L (23-300); Magnesium 1.4 mg/dL (1.6-2.3); Non-African American GFR(CKD) >90 (>60 ml/min/1.73 sqM); Phosphorus 4.2 mg/dL (2.5-4.5); Potassium 3.8 mmol/L (3.5-5.1); Salicylate <1.0 mg/dL; Sodium 134 mmol/L (137-145); Total Bilirubin 0.8 mg/dL (0.2-1.3); Total Protein 7.6 g/dL (6.3-8.2)
--- NOTE | 2022-11-07 22:44 | ED ---
Overdose HPI - General Chief Complaint: Overdose Stated Complaint: Exposure to unk substance Time Seen by Provider: 11/07/22 21:12 Source: patient, EMS, RN notes reviewed, old records reviewed Mode of arrival: EMS Limitations: no limitations - History of Present Illness Initial Comments: This is a 31-year-old female to the emergency department for evaluation. Patient presents today for evaluation of possible overdose or nonspecific cause of anxiety tremors shaking sweating and inability to stop talking. Patient states she feels very hyperverbal and has involuntary movement of both legs. Patient does take Adderall and xywave for insomnia MD Complaint: intentional overdose, accidental overdose -: days(s) Intent: unwilling to say How Overdose Was Discovered: called family/friend Context: Intentional Overdose: relationship problems Context: Accidental Overdose: wanted to get high Associated Symptoms: depression Treatments Prior to Arrival: none - Related Data Home Medications Medication Instructions Recorded Confirmed Dextroamphetamine/Amphetamine 30 mg PO BID 09/14/20 11/08/22 [Adderall] Loratadine [Claritin] 10 mg PO DAILY 09/14/20 11/08/22 [place]-3 Fatty Acids/Fish Oil [Fish 1 cap PO DAILY 09/14/20 11/08/22 Oil 1,000 mg Softgel] Sodium,Calcium,Mag,Pot Oxybate 4.5 gm PO BID@0030,0430 11/08/22 11/08/22 [Xywav 0.5 gm/ml Oral Solution] Spironolactone [Aldactone] 25 mg PO DAILY 11/08/22 11/08/22 Allergies Allergy/AdvReac Type Severity Reaction Status Date / Time citalopram [From Celexa] AdvReac Altered Verified 11/08/22 09:13 Mental Status Review of Systems ROS Statement: Those systems with pertinent positive or pertinent negative responses have been documented in the HPI. ROS Other: All systems not noted in ROS Statement are negative. Past Medical History Past Medical History: Hypertension Additional Past Medical History / Comment(s): Narcolepsy History of Any Multi-Drug Resistant Organisms: None Reported Past Surgical History: Hernia Repair Past Psychological History: No Psychological Hx Reported Past Alcohol Use History: Occasional Past Drug Use History: None Reported - Past Family History Father Family Medical History: Hypertension General Exam - General Exam Comments Initial Comments: Involuntary leg tremors bilateral Limitations: no limitations General appearance: alert, in no apparent distress, anxious Head exam: Present: atraumatic, normocephalic, normal inspection Eye exam: Present: normal appearance, PERRL, EOMI. Absent: scleral icterus, conjunctival injection, periorbital swelling ENT exam: Present: normal exam, mucous membranes moist Neck exam: Present: normal inspection. Absent: tenderness, meningismus, lymphadenopathy Respiratory exam: Present: normal lung sounds bilaterally. Absent: respiratory distress, wheezes, rales, rhonchi, stridor Cardiovascular Exam: Present: normal rhythm, tachycardia, normal heart sounds. Absent: systolic murmur, diastolic murmur, rubs, gallop, clicks GI/Abdominal exam: Present: soft, normal bowel sounds. Absent: distended, tenderness, guarding, rebound, rigid Extremities exam: Present: normal inspection, full ROM, normal capillary refill. Absent: tenderness, pedal edema, joint swelling, calf tenderness Back exam: Present: normal inspection Neurological exam: Present: alert, oriented X3, CN II-XII intact Psychiatric exam: Present: normal affect, normal mood Skin exam: Present: warm, dry, intact, normal color. Absent: rash Course Vital Signs 11/07/22 11/07/22 11/07/22 21:09 22:03 23:00 Temperature 97.8 F Pulse Rate 133 H 124 H 108 H Respiratory 20 16 16 Rate Blood Pressure 175/105 162/119 146/102 O2 Sat by Pulse 99 98 100 Oximetry 11/08/22 11/08/22 00:00 01:26 Temperature Pulse Rate 92 108 H Respiratory 16 12 Rate Blood Pressure 146/99 127/88 O2 Sat by Pulse 100 97 Oximetry - Reevaluation(s) Reevaluation #1: 11/08/22 00:04 Medical records reviewed 11/08/22 00:05 We did speak with poison control no recommendations Reevaluation #2: 11/08/22 00:04 Patient symptoms are unchanged Reevaluation #3: 11/08/22 00:05 Patient informed results and questions answered Reevaluation #4: 11/08/22 00:05 Was pt. sent in by a medical professional or institution (, PA, HOSPICE CONSULTANT, urgent care, hospital, or correction...) When possible be specific @ -no Did you speak to anyone other than the patient for history (EMS, parent, family, police, friend...)? What history was obtained from this source @ -no Did you review nursing and triage notes (agree or disagree)? Why? @ -agree Are old charts reviewed (outside hosp., previous admission, EMS record, old EKG, old radiological studies, urgent care reports/EKG's, correction records)? Report findings @ -yes Differential Diagnosis (chest pain, altered mental status, abdominal pain women, abdominal pain men, vaginal bleeding, weakness, fever, dyspnea, syncope, headache, dizziness, GI bleed, back pain, seizure, CVA, palpatations, mental health, musculoskeletal)? @ -prior EKG interpreted by me (3pts min.). @ -yes X-rays interpreted by me (1pt min.). @ -yes CT interpreted by me (1pt min.). @ -no U/S interpreted by me (1pt. min.). @ -no What testing was considered but not performed or refused? (CT, X-rays, U/S, labs)? Why? @ -none What meds were considered but not given or refused? Why? @ -none Did you discuss the management of the patient with other professionals (professionals i.e. , PA, HOSPICE CONSULTANT, lab, RT, psych nurse, social scientist, glass bead maker, teacher, disability insurance hearing officer, immigration case manager)? Give summary @ -no Was smoking cessation discussed for >3mins.? @ -no Was critical care preformed (if so, how long)? @ -no Were there social determinants of health that impacted care today? How? (Homelessness, low income, unemployed, alcoholism, drug addiction, transportation, low edu. Level, literacy, decrease access to med. care, m[facility]p, re hab)? @ -none Was there de-escalation of care discussed even if they declined (Discuss DNR or withdrawal of care, Hospice)? DNR status @ -no What co-morbidities impacted this encounter? (DM, HTN, Smoking, COPD, CAD, Cancer, CVA, ARF, Chemo, Hep., AIDS, mental health diagnosis, sleep apnea, morbid obesity)? @ -none Was patient admitted / discharged? Hospital course, mention meds given and route, prescriptions, significant lab abnormalities, going to OR and other pertinent info. @ - Undiagnosed new problem with uncertain prognosis? @ -no Drug Therapy requiring intensive monitoring for toxicity (Heparin, Nitro, Insulin, Cardizem)? @ -no Were any procedures done? @ -no Diagnosis/symptom? @ - Acute, or Chronic, or Acute on Chronic? @ -Acute Uncomplicated (without systemic symptoms) or Complicated (systemic symptoms)? @ -Complicated Side effects of treatment? @ -no Exacerbation, Progression, or Severe Exacerbation? @ -exacerbation Poses a threat to life or bodily function? How? (Chest pain, USA, MT, pneumonia, PE, COPD, DKA, ARF, appy, cholecystitis, CVA, Diverticulitis, Homicidal, Suicidal, threat to staff... and all critical care pts) @ -yes - Consultations Consultation #1: Spoke with sound physicians will admit this patient Consultation #2: I did speak with poison control they do not believe there is any way to ingest [place] from touch or inhalation Medical Decision Making - Medical Decision Making 31 female to the emergency department with sympathomimetic medic toxidrome. Patient does take sideways and Adderall, or patrol with a known exposures, remained significantly tachycardic with tremor and severe anxiety. Unknown cause of toxicity, patient will be admitted for continued monitoring - Lab Data Result diagrams: 11/09/22 06:23 11/09/22 06:23 Lab Results 11/07/22 11/07/22 11/07/22 Range/Units 22:02 22:02 22:02 WBC 8.2 (3.8-10.6) k/uL RBC 4.18 (3.80-5.40) m/uL Hgb 12.9 (11.4-16.0) gm/dL Hct 37.4 (34.0-46.0) % MCV 89.6 (80.0-100.0) fL MCH 30.8 (25.0-35.0) pg MCHC 34.4 (31.0-37.0) g/dL RDW 12.5 (11.5-15.5) % Plt Count 209 (150-450) k/uL MPV 7.9 Neutrophils % 49 % Lymphocytes % 40 % Monocytes % 7 % Eosinophils % 1 % Basophils % 1 % Neutrophils # 4.1 (1.3-7.7) k/uL Lymphocytes # 3.3 (1.0-4.8) k/uL Monocytes # 0.5 (0-1.0) k/uL Eosinophils # 0.1 (0-0.7) k/uL Basophils # 0.0 (0-0.2) k/uL Sodium (137-145) mmol/L Potassium (3.5-5.1) mmol/L Chloride (98-107) mmol/L Carbon Dioxide (22-30) mmol/L Anion Gap mmol/L BUN (7-17) mg/dL Creatinine (0.52-1.04) mg/dL Est GFR (CKD-EPI)AfAm (>60 ml/min/1.73 sqM) Est GFR (CKD-EPI)NonAf (>60 ml/min/1.73 sqM) Glucose (74-99) mg/dL Calcium (8.4-10.2) mg/dL Phosphorus (2.5-4.5) mg/dL Magnesium (1.6-2.3) mg/dL Total Bilirubin (0.2-1.3) mg/dL AST (14-36) U/L ALT (4-34) U/L Alkaline Phosphatase (38-126) U/L Total Protein (6.3-8.2) g/dL Albumin (3.5-5.0) g/dL Lipase (23-300) U/L Urine Color Colorless Urine Appearance Clear (Clear) Urine pH 6.0 (5.0-8.0) Ur Specific [place] <1.005 (1.001-1.035) Urine Protein Negative (Negative) Urine Glucose (UA) Negative (Negative) Urine Ketones Negative (Negative) Urine Blood Trace (Negative) Urine Nitrite Negative (Negative) Urine Bilirubin Negative (Negative) Urine Urobilinogen <2.0 (<2.0) mg/dL Ur Leukocyte Esterase Negative (Negative) Urine RBC 0 (0-5) /hpf Urine WBC 0 (0-5) /hpf Urine Bacteria NONE (None) /hpf Urine Mucus NONE (None) /hpf Urine HCG, Qual Not Detected (Not Detectd) Salicylates mg/dL Urine Opiates Screen Not Detected (NotDetected) Ur Oxycodone Screen Not Detected (NotDetected) Urine Methadone Screen Not Detected (NotDetected) Ur Propoxyphene Screen Not Detected (NotDetected) Acetaminophen ug/mL Ur Barbiturates Screen Not Detected (NotDetected) U Tricyclic Antidepress Not Detected (NotDetected) Ur Phencyclidine Scrn Not Detected (NotDetected) Ur Amphetamines Screen Detected H (NotDetected) U Methamphetamines Scrn Not Detected (NotDetected) U Benzodiazepines Scrn Not Detected (NotDetected) Urine Cocaine Screen Not Detected (NotDetected) U Marijuana (THC) Screen Not Detected (NotDetected) Serum Alcohol mg/dL 11/07/22 Range/Units 22:02 WBC (3.8-10.6) k/uL RBC (3.80-5.40) m/uL Hgb (11.4-16.0) gm/dL Hct (34.0-46.0) % MCV (80.0-100.0) fL MCH (25.0-35.0) pg MCHC (31.0-37.0) g/dL RDW (11.5-15.5) % Plt Count (150-450) k/uL MPV Neutrophils % % Lymphocytes % % Monocytes % % Eosinophils % % Basophils % % Neutrophils # (1.3-7.7) k/uL Lymphocytes # (1.0-4.8) k/uL Monocytes # (0-1.0) k/uL Eosinophils # (0-0.7) k/uL Basophils # (0-0.2) k/uL Sodium 134 L (137-145) mmol/L Potassium 3.8 (3.5-5.1) mmol/L Chloride 98 (98-107) mmol/L Carbon Dioxide 23 (22-30) mmol/L Anion Gap 13 mmol/L BUN 15 (7-17) mg/dL Creatinine 0.79 (0.52-1.04) mg/dL Est GFR (CKD-EPI)AfAm >90 (>60 ml/min/1.73 sqM) Est GFR (CKD-EPI)NonAf >90 (>60 ml/min/1.73 sqM) Glucose 126 H (74-99) mg/dL Calcium 9.8 (8.4-10.2) mg/dL Phosphorus 4.2 (2.5-4.5) mg/dL Magnesium 1.4 L (1.6-2.3) mg/dL Total Bilirubin 0.8 (0.2-1.3) mg/dL AST 32 (14-36) U/L ALT 23 (4-34) U/L Alkaline Phosphatase 55 (38-126) U/L Total Protein 7.6 (6.3-8.2) g/dL Albumin 4.7 (3.5-5.0) g/dL Lipase 105 (23-300) U/L Urine Color Urine Appearance (Clear) Urine pH (5.0-8.0) Ur Specific [place] (1.001-1.035) Urine Protein (Negative) Urine Glucose (UA) (Negative) Urine Ketones (Negative) Urine Blood (Negative) Urine Nitrite (Negative) Urine Bilirubin (Negative) Urine Urobilinogen (<2.0) mg/dL Ur Leukocyte Esterase (Negative) Urine RBC (0-5) /hpf Urine WBC (0-5) /hpf Urine Bacteria (None) /hpf Urine Mucus (None) /hpf Urine HCG, Qual (Not Detectd) Salicylates <1.0 mg/dL Urine Opiates Screen (NotDetected) Ur Oxycodone Screen (NotDetected) Urine Methadone Screen (NotDetected) Ur Propoxyphene Screen (NotDetected) Acetaminophen <10.0 ug/mL Ur Barbiturates Screen (NotDetected) U Tricyclic Antidepress (NotDetected) Ur Phencyclidine Scrn (NotDetected) Ur Amphetamines Screen (NotDetected) U Methamphetamines Scrn (NotDetected) U Benzodiazepines Scrn (NotDetected) Urine Cocaine Screen (NotDetected) U Marijuana (THC) Screen (NotDetected) Serum Alcohol <10 mg/dL - EKG Data -: EKG Interpreted by Me (EKG is sinus tachycardia 129 CA 135 QRS 85 QTC 410) Critical Care Time Critical Care Time: Yes Total Critical Care Time: 31 Disposition Clinical Impression: Accidental drug overdose, Tachycardia, Hypertension, Hypokalemia, Hypomagnesemia, Hyponatremia, Poisoning by sympathomimetic drug Disposition: ADMITTED IP TO THIS [facility] Condition: Good Is patient prescribed a controlled substance at d/c from ED?: No Time of Disposition: 00:00
[2022-11-07 22:50] LABS: RBC,Urine 0 /hpf (0-5); WBC,Urine 0 /hpf (0-5)
[2022-11-07] MEDS ORDERED: MAGNESIUM OXIDE 400 MG TAB PO STA ×2 (23:10)
[2022-11-07] MEDS ORDERED: MAGNESIUM SULFATE-D5W PMX 1 GM in DEXTROSE/WATER 1 100ML.BAG IVPB ONE (23:12)
[2022-11-07] MEDS ORDERED: ONDANSETRON 4 MG/2 ML VIAL IVP PRN (23:51)
[2022-11-07] MEDS ORDERED: NALOXONE 0.4 MG/ML 1 ML VIAL IV PRN (23:51)
[2022-11-08] MEDS: SODIUM CHLORIDE 0.9% 1,000 ML IV SCH ×4 (01:23→21:46)
--- NOTE | 2022-11-08 03:47 | P.HPIM ---
History of Present Illness H&P Date: 11/08/22 The patient is a 31-year-old female with a PMH of hypertension and narcolepsy presents to the ED for possible overdose, feeling anxious, shaky, and uneasy. The patient reports that her symptoms started gradually earlier today. She initially noted that she was tapping her feet and was a bit fidgity. Her symptoms progressed to pressured speech, labile mood, and tachycardia. Upon arrival at the emergency room, the patient was tachycardic with pulse 133, and BP 175/105. At time of interview, the patient reported feeling somewhat better but still felt uneasy and reported feeling as though her body was made of lead and very heavy. 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 The patient states that she has a long-standing history of hypertension and was diagnosed 10 years ago at which time a complete workup including ultrasound for possible renal artery stenosis as well as urine testing for few chromocytoma were performed and were unremarkable. The patient reports that she is currently on spironolactone due to side effects from several other medications. The patient states that she started taking Xywav for narcolepsy roughly 6 weeks ago and has been gradually increasing the dose. The case was discussed with the on- call pharmacist for specialized pharmacy dispensing Xyvax at [phone]. They report that there are no known interactions with Adderall and Xyvax and that most patients in fact take it as a sleep aid. EKG in the emergency room revealed sinus tachycardia at129 bpm with no [address]/T-wave changes noted as reviewed by me. Laboratory evaluation was reviewed and was remarkable for urine tox cardiology positive for amphetamines, sodium 134, glucose 126, and magnesium 1.4. ED documentation reviewed and case discussed with ED provider. Review of systems: Pertinent positives and negatives as discussed in HPI, a complete review of systems was performed and all other systems are negative. Physical examination: Vital signs reviewed General: non toxic, no distress, appears at stated age, normal weight, tremulous Derm: no unusual rashes/lesions, warm Head: atraumatic, normocephalic, symmetric Eyes: EOMI, no lid lag, anicteric sclera, pupils equal round reactive to light ENT: Nose and ears atraumatic Neck: No cervical lymphadenopathy, trachea midline, supple Mouth: no lip lesion, mucus membranes moist Cardiovascular: S1S2 reg, no murmur, positive dorsalis pedis pulse bilateral, no edema Lungs: CTA bilateral, no rhonchi, no rales, no accessory muscle use Abdominal: soft, nontender to palpation, no guarding Ext: muscle strength 4 out of 5 in all 4 extremities grossly, no gross muscle atrophy, no contractures, Neuro: CN II-XI grossly intact, no gross focal neuro deficits Psych: Alert, oriented, appropriate affect Assessment: Sympathomimetic overdose, suspect accidental contact Hypomagnesemia Chronic conditions: Hypertension, narcolepsy Imaging: EKG in the emergency room revealed sinus tachycardia at129 bpm [address]/T-wave changes noted as reviewed by me. Data Review: Laboratory evaluation was reviewed and was remarkable for urine tox cardiology positive for amphetamines, sodium 134, glucose 126, and magnesium 1.4. Plan: Case was discussed with poison control by ED provider who noted no specific recommendations Continue cardiac monitoring IV fluids Replace magnesium and monitor for resolution DVT prophylaxis: Lovenox The patient is admitted with an anticipated greater than 2 midnight stay for evaluation of overdose CODE STATUS: Full Code Discussed with: Patient Anticipated discharge place: Home Past Medical History Past Medical History: Hypertension Additional Past Medical History / Comment(s): Narcolepsy History of Any Multi-Drug Resistant Organisms: None Reported Past Surgical History: Hernia Repair Past Anesthesia/Blood Transfusion Reactions: No Reported Reaction Past Psychological History: No Psychological Hx Reported Smoking Status: Never smoker Past Alcohol Use History: Occasional Past Drug Use History: None Reported - Past Family History Father Family Medical History: Hypertension Medications and Allergies Home Medications Medication Instructions Recorded Confirmed Type norethindrone-e.estradioL-iron 1 tab PO DAILY 12/04/16 09/14/20 History [Junel Fe 1 mg-20 Mcg Tablet] Cyanocobalamin (Vitamin B-12) 1,000 mcg PO DAILY 09/14/20 09/14/20 History [Vitamin B-12] Dextroamphetamine/Amphetamine 30 mg PO BID 09/14/20 09/14/20 History [Adderall] Glucosamine Sulfate 500 mg PO DAILY 09/14/20 09/14/20 History Loratadine [Claritin] 10 mg PO DAILY 09/14/20 09/14/20 History [place]-3 Fatty Acids/Fish Oil [Fish 1 cap PO DAILY 09/14/20 09/14/20 History Oil 1,000 mg Softgel] Prevdnt 5000 1.5-5% Toothpaste 1 applic DENTAL BID 09/14/20 09/14/20 History amLODIPine [Norvasc] 5 mg PO DAILY 30 Days #30 tab 09/15/20 Rx Allergies Allergy/AdvReac Type Severity Reaction Status Date / Time citalopram [From Celexa] AdvReac Altered Verified 09/14/20 21:11 Mental Status Physical Exam Vitals: Vital Signs Temp Pulse Pulse Resp BP BP Pulse Ox 11/08/22 02:45 98.5 F 83 16 142/90 99 11/08/22 01:26 108 H 12 127/88 97 11/08/22 00:00 92 16 146/99 100 11/07/22 23:00 108 H 16 146/102 100 11/07/22 22:03 124 H 16 162/119 98 11/07/22 21:09 97.8 F 133 H 20 175/105 99 Intake and Output 11/07/22 11/07/22 11/08/22 14:59 22:59 06:59 Other: Weight 61.235 kg 61.235 kg Results CBC & Chem 7: 11/07/22 22:02 11/07/22 22:02 Labs: Abnormal Lab Results - Last 24 Hours (Table) 11/07/22 11/07/22 Range/Units 22:02 22:02 Sodium 134 L (137-145) mmol/L Glucose 126 H (74-99) mg/dL Magnesium 1.4 L (1.6-2.3) mg/dL Ur Amphetamines Screen Detected H (NotDetected) Thrombosis Risk Factor Assmnt - Choose All That Apply Any of the Below Risk Factors Present?: No Other Risk Factors: No Other congenital or acquired thrombophilia - If yes, enter type in comment: No Thrombosis Risk Factor Assessment Level: Very Low Risk
[2022-11-08] MEDS: ENOXAPARIN 40 MG/0.4 ML SYRINGE SQ SCH (10:55)
[2022-11-08 12:05] VITALS: BMI 22.4
[2022-11-09] MEDS: [UNRECOGNIZED DRUG - OTHER] PO SCH ×2 (01:17→02:29)
[2022-11-09] MEDS: SODIUM CHLORIDE 0.9% 1,000 ML IV SCH (05:00)
[2022-11-09 08:08] VITALS: BP 115/73; PULSE 82; RESP 14; TEMP 97.9
[2022-11-09] MEDS: ENOXAPARIN 40 MG/0.4 ML SYRINGE SQ SCH (08:10)
[2022-11-09] MEDS ORDERED: NON FORMULARY DRUG (Omega-3 Fatty Acids/Fish Oil [Fish Oil 1,000 Mg Softgel] 1 EACH Capsul PO SCH (09:00)
[2022-11-09] MEDS ORDERED: LORATADINE 10 MG TAB PO SCH (09:00)
[2022-11-09] MEDS ORDERED: SPIRONOLACTONE 25 MG TAB PO SCH (09:00)
[2022-11-09 14:11] LABS: Basophils # (A) 0.05 X 10*3/uL (0.00-0.10); Basophils % (A) 0.7 %; Eosinophils # (A) 0.19 X 10*3/uL (0.04-0.35); Eosinophils % (A) 2.7 %; HCT 36.9 % (37.2-46.3); HGB 12.1 d/dL (12.0-15.0); Lymphocytes # (A) 2.72 X 10*3/uL (0.90-5.00); Lymphocytes % (A) 38.2 %; MCH 30.3 pg (27.0-32.0); MCHC 32.8 d/dL (32.0-37.0); MCV 92.3 FL (80.0-97.0); Mean Platelet Volume 10.4 FL (9.5-12.2); Monocytes # (A) 0.58 X 10*3/uL (0.20-1.00); Monocytes % (A) 8.1 %; NRBC Per 100 WBC 0 X 10*3/uL (0.00-0.01); Neutrophils # (A) 3.57 X 10*3/uL (1.80-7.70); Neutrophils % (A) 50.2 %; Platelet Count 207 X 10*3/uL (140-440); RDW 12.5 % (11.5-14.5); WBC 7.12 X 10*3/uL (4.50-10.00)
[2022-11-09 15:28] LABS: Magnesium 1.7 mg/dL (1.5-2.4); Phosphorus 3.3 mg/dL (2.4-5.1)
[2022-11-09 15:29] LABS: ALT 16 U/L (8-44); AST 20 U/L (13-35); Albumin 4.2 d/dL (3.8-4.9); Albumin/Globulin Ratio 2.33 Ratio (1.60-3.17); Alkaline Phosphatase 53 U/L (41-126); BUN/Creat Ratio 15.33 Ratio (12.00-20.00); Blood Urea Nitrogen 9.2 mg/dL (9.0-27.0); Calcium 9.1 mg/dL (8.7-10.3); Carbon Dioxide 20.2 mmol/L (21.6-31.8); Chloride 110 mmol/L (96-109); Globulin 1.8 d/dL (1.6-3.3); Glucose 88 mg/dL (70-110); Potassium 4.2 mmol/L (3.5-5.5); Sodium 140 mmol/L (135-145); Total Bilirubin <0.2 mg/dL (0.3-1.2)
--- NOTE | 2022-11-09 18:14 | P.DS ---
Providers Date of admission: 11/08/22 00:00 Expected date of discharge: 11/09/22 Attending physician: Reji Watkins MD Primary care physician: Zeenat Bustillo Hospital Course: Discharge Diagnosis: Suspect accidental/unintentional sympathetic overdose versus side effect of medications Hypomagnesemia Hypertension Narcolepsy Hospital Course: The patient is a 31-year-old female with hypertension and narcolepsy who presented to the ED for concerns of possible unintentilal overdose. 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 Upon arrival at the emergency room, Vitals were remarkable for HR of 133, and BP 175/105. Laboratory analysis in the ER was remarkable for magnesium of 1.4. Urine drug screen was positive for amphetamines, patient does take Adderall. She was admitted for possible unintentional overdose. She has recently started on Xywav by her neurologist and has been slowly increasing the dose. She is observed for 24 hours and felt back to normal. She was determined stable for discharge. Follow-up: I have asked her to follow up with Dr. Bustillo her primary care physician as well as her neurologist to see if the combination of Adderall and Xywav is a good option for her as bowls these medications can increase anxiety and Xywav can cause parathesias. Patient seen and examined at bedside with present. She is feeling better but significantly lethargic she's been off of her Adderall and Xywav. We discussed that this combination can increase anxiety and paresthesias. I asked her to discuss with her neurologist if she should continue Xywav. Vital signs reviewed and stable. General: nontoxic, no distress, appears at stated age Cardiovascular: S1S2 reg, no murmur, positive posterior tibial pulse bilateral, Lungs: CTA bilateral, no rhonchi, no rales , no accessory muscle use Abdominal: soft, nontender to palpation, no guarding, no appreciable or ganomegaly Ext: no gross muscle atrophy, no edema b/l lower extremities, no contractures Neuro: CN II-XI grossly intact, no focal neuro deficits Psych: Alert, oriented, appropriate affect A total of 25 minutes of time were spent preparing this complex discharge summary. Patient was discharged on 11/09/22. This dictation was prepared using dragon medical voice recognition software. Though every attempt is made to correct errors during dictation some may still exist. Patient Condition at Discharge: Good Plan - Discharge Summary Discharge Rx Participant: Yes New Discharge Prescriptions: Continue [place]-3 Fatty Acids/Fish Oil [Fish Oil 1,000 mg Softgel] 1 cap PO DAILY Dextroamphetamine/Amphetamine [Adderall] 30 mg PO BID Sodium,Calcium,Mag,Pot Oxybate [Xywav 0.5 gm/ml Oral Solution] 4.5 gm PO BID@0030,0430 Loratadine [Claritin] 10 mg PO DAILY Spironolactone [Aldactone] 25 mg PO DAILY Discharge Medication List Dextroamphetamine/Amphetamine [Adderall] 30 mg PO BID 09/14/20 [History] Loratadine [Claritin] 10 mg PO DAILY 09/14/20 [History] [place]-3 Fatty Acids/Fish Oil [Fish Oil 1,000 mg Softgel] 1 cap PO DAILY 09/14/20 [History] Sodium,Calcium,Mag,Pot Oxybate [Xywav 0.5 gm/ml Oral Solution] 4.5 gm PO BID@0030,0430 11/08/22 [History] Spironolactone [Aldactone] 25 mg PO DAILY 11/08/22 [History] Follow up Appointment(s)/Referral(s): Zeenat Bustillo MD [Primary Care Provider] - 1-2 days (office not answering Please call to schedule appointment ) Patient Instructions/Handouts: Hypertension (DC) Activity/Diet/Wound Care/Special Instructions: Activity: As tolerated Diet: Regular Special Instructions: Please follow-up with your neurologist regarding your Xywav and possible side effects Discharge Disposition: HOME SELF-CARE
== END 2022-11-09 13:04 | disposition home or self-care (01) | DRG 918 ==
LOC: EC 21:07 → 4SSUR 11-08
PROVIDERS: ADMIT Internal Medicine; ATTEND Internal Medicine
DX: T42.71XA Poisoning by unspecified antiepileptic and sedative-hypnotic drugs, accidental (unintentional), initial encounter (principal); Z88.8 Allergy status to other drugs, medicaments and biological substances; G47.00 Insomnia, unspecified; R00.0 Tachycardia, unspecified; G47.419 Narcolepsy without cataplexy; I10 Essential (primary) hypertension; R25.1 Tremor, unspecified; Z79.899 Other long term (current) drug therapy; Z82.49 Family history of ischemic heart disease and other diseases of the circulatory system; Z87.19 Personal history of other diseases of the digestive system
CPT/HCPCS: 36415; 80053; 80143; 80179; 80306; 80320; 81001; 81025; 83690; 83735; 84100; 85025; 93005; 94760; 96361; 96365; 96375; 99291

== ENCOUNTER → 2023-03-15 | Outpatient (CLI) | payer BC ==
--- NOTE | 2023-03-15 09:14 | MM ---
Reason for Exam: Clinical finding. Baseline mammogram. Prior Study Comparison: Patient's first Mammogram. Tissue Density: The breast tissue is heterogeneously dense. This may lower the sensitivity of mammography. Findings: Analyzed By CAD. Palpable marker along the left upper outer quadrant. Some underlying dense tissue is present here. 3-D images show intramammary lymph node. Possible second 1.1 cm area of nodularity here as well. Otherwise, no significant mass, suspicious microcalcification, or other discrete abnormality is seen. Overall Assessment: Incomplete: need additional imaging evaluation, BI-RAD 0 Management: Diagnostic Breast Ultrasound of both breasts. Right upper outer quadrant at the physician palpated site and left upper outer quadrant at the physician/patient palpated site. Electronically signed and approved by: Niels Hemphill M.D. Radiologist
--- NOTE | 2023-03-15 09:17 | USB ---
Reason for Exam: Clinical finding. Technique: Method: Targeted. Findings: The upper outer quadrant of both breasts, the axilla of both breasts and the retroareolar of both breasts were scanned. Targeted ultrasound bilateral breasts upper-outer quadrants including the subareolar region and axilla. No solid or cystic lesion or axillary lymphadenopathy on the right. On the left, there is a 7 x 3 mm intramammary lymph node with normal uniform cortex measuring up to 1.4 mm thick. Some hilar vascular flow is noted. No other solid or cystic lesion or axillary lymphadenopathy. Six-month follow-up mammogram recommended. Overall Assessment: Probably benign, BI-RAD 3 Management: Diagnostic Mammogram of the left breast in 6 months. A clinical breast exam by your physician is recommended on an annual basis and results should be correlated with mammographic findings. This exam should not preclude additional follow-up of suspicious palpable abnormalities. Results were given to the patient verbally at the time of exam. Electronically signed and approved by: Niels Hemphill M.D. Radiologist
== END | disposition home or self-care (01) ==
LOC: RADMAMWWP 08:08
PROVIDERS: ATTEND Family Medicine
DX: R92.333 Mammographic heterogeneous density, bilateral breasts (principal)
CPT/HCPCS: 77062; 77066

== ENCOUNTER 2023-04-22 14:53 | Emergency (ER) | payer BC ==
--- NOTE | 2023-04-22 15:26 | ED ---
General Adult HPI - General Source: patient, RN notes reviewed Mode of arrival: ambulatory Limitations: no limitations <Laura Flower - Last Filed: 04/22/23 15:25> <Sander Deng - Last Filed: 04/22/23 18:38> - General Chief complaint: Neuro Symptoms/Deficit Stated complaint: tingling hands and face Time Seen by Provider: 04/22/23 15:25 - History of Present Illness Initial comments: Patient is a 32-year-old female presented ER with chief complaint of dizziness. Patient states she walked into work today and was starting to feel dizzy and having tingling down bilateral arms. She tried to sit down and dizziness continued. Patient reports that she had a similar episode of this and was found to have depleted electrolytes. Patient denies any fevers, chills, night sweats, chest pain, shortness of breath. (Laura Flower) 32-year-old female with past medical history significant for hypertension presents to the ED with a chief complaint of paresthesias. Patient states at approximately 1 PM today started to feel "shaky and jittery like I had low blood sugar". He states due to this went and took a mix of electrolytes and notes after taking these she started to feel tingling across her entire body. No other symptoms at this time. Patient states symptoms lasted approximately an hour and states that she feels normal now. Per at bedside, acting appropriate her normal self. No other complaints. (Sander Deng) - Related Data Home Medications Medication Instructions Recorded Confirmed Dextroamphetamine/Amphetamine 30 mg PO BID 09/14/20 11/08/22 [Adderall] Loratadine [Claritin] 10 mg PO DAILY 09/14/20 11/08/22 [place]-3 Fatty Acids/Fish Oil [Fish 1 cap PO DAILY 09/14/20 11/08/22 Oil 1,000 mg Softgel] Sodium,Calcium,Mag,Pot Oxybate 4.5 gm PO BID@0030,0430 11/08/22 11/08/22 [Xywav 0.5 gm/ml Oral Solution] Spironolactone [Aldactone] 25 mg PO DAILY 11/08/22 11/08/22 Allergies Allergy/AdvReac Type Severity Reaction Status Date / Time citalopram [From Celexa] AdvReac Altered Verified 04/22/23 15:01 Mental Status Review of Systems ROS Other: All systems not noted in ROS Statement are negative. <Laura Flower - Last Filed: 04/22/23 15:25> ROS Other: All systems not noted in ROS Statement are negative. <Sander Deng - Last Filed: 04/22/23 18:38> ROS Statement: Those systems with pertinent positive or pertinent negative responses have been documented in the HPI. Past Medical History Past Medical History: Hypertension Additional Past Medical History / Comment(s): Narcolepsy History of Any Multi-Drug Resistant Organisms: None Reported Past Surgical History: Hernia Repair Past Anesthesia/Blood Transfusion Reactions: No Reported Reaction Past Psychological History: No Psychological Hx Reported Smoking Status: Never smoker Past Alcohol Use History: Occasional Past Drug Use History: None Reported - Past Family History Father Family Medical History: Hypertension <Laura Flower - Last Filed: 04/22/23 15:25> General Exam Limitations: no limitations <Laura Flower - Last Filed: 04/22/23 15:25> General appearance: alert, in no apparent distress Eye exam: Present: normal appearance Neck exam: Present: normal inspection Respiratory exam: Present: normal lung sounds bilaterally Cardiovascular Exam: Present: regular rate, normal rhythm GI/Abdominal exam: Present: soft (No Tenderness palpation. No rebound guarding or rigidity.) Neurological exam: Present: alert, oriented X3, CN II-XII intact (Finger to nose, rapid alternating hand movements, [id number] intact.) Skin exam: Present: warm, dry <Sander Deng - Last Filed: 04/22/23 18:38> - General Exam Comments Initial Comments: Visual Physical Exam Vital signs reviewed General: ill- appearing, nontoxic, no acute distress. Head: Normocephalic, atraumatic Eyes: PERRLA, EOMI ENT: Airway patent Chest: Nonlabored breathing Skin: No visual rash, bilateral hand hands have a blue tone Neuro: Alert and oriented 3 Musculoskeletal: No gross abnormalities (Laura Flower) Course Vital Signs 04/22/23 04/22/23 14:56 18:00 Pulse Rate 110 H 95 Respiratory 18 16 Rate Blood Pressure 147/79 133/90 O2 Sat by Pulse 100 100 Oximetry Medical Decision Making <Laura Flower - Last Filed: 04/22/23 15:25> - Lab Data Result diagrams: 04/22/23 16:25 04/22/23 16:25 <Sander Deng - Last Filed: 04/22/23 18:38> - Medical Decision Making I performed the quick note portion of the exam. Electronically signed by Laura Flower PA-C (Laura Flower) Was pt. sent in by a medical professional or institution ([facility], [facility], urgent care, hospital, or long term...) When possible be specific @ -No Did you speak to anyone other than the patient for history (EMS, parent, family, police, friend...)? What history was obtained from this source @ -No Did you review nursing and triage notes (agree or disagree)? Why? @ -I reviewed and agree with nursing and triage notes Were old charts reviewed (outside hosp., previous admission, EMS record, old EKG, old radiological studies, urgent care reports/EKG's, long term records)? Report findings @ -No old charts were reviewed Differential Diagnosis (chest pain, altered mental status, abdominal pain women, abdominal pain men, vaginal bleeding, weakness, fever, dyspnea, syncope, headache, dizziness, GI bleed, back pain, seizure, CVA, palpatations, mental health, musculoskeletal)? @ -Differential Altered Mental Status: Hypoglycemia, DKA, hypercapnia, ETOH, overdose, CO poisoning, trauma, myxedema coma, HTN encephalopathy, infection, encephalitis, psychosis, intercranial hemorrhage, hepatic encephalopathy, meningitis, CVA, this is not meant to be an all-inclusive list EKG interpreted by me (3pts min.). @ -EKG shows a normal sinus rhythm at 97 AIDS per minute without acute ST or T- wave changes. WI 128, QRS 82, QT/QTC 282/336. X-rays interpreted by me (1pt min.). @ -Chest x-ray interpreted by me showing no evidence of acute process. CT interpreted by me (1pt min.). @ -None done U/S interpreted by me (1pt. min.). @ -None done What testing was considered but not performed or refused? (CT, X-rays, U/S, labs)? Why? @ -None What meds were considered but not given or refused? Why? @ -None Did you discuss the management of the patient with other professionals (professionals i.e. , PA, [facility], lab, RT, psych nurse, social staff worker, [employer], teacher, corporate trust officer, case management coordinator)? Give summary @ -No Was smoking cessation discussed for >3mins.? @ -No Was critical care preformed (if so, how long)? @ -No Were there social determinants of health that impacted care today? How? (Homelessness, low income, unemployed, alcoholism, drug addiction, t ransportation, low edu. Level, literacy, decrease access to med. care, [facility], rehab)? @ -No Was there de-escalation of care discussed even if they declined (Discuss DNR or withdrawal of care, Hospice)? DNR status @ -No What co-morbidities impacted this encounter? (DM, HTN, Smoking, COPD, CAD, Cancer, CVA, ARF, Chemo, Hep., AIDS, mental health diagnosis, sleep apnea, morbid obesity)? @ -None Was patient admitted / discharged? Hospital course, mention meds given and route, prescriptions, significant lab abnormalities, going to OR and other pertinent info. @ -Discharge 32-year-old female with a past medical history significant for hypertension presenting to the ED with chief complaint of paresthesias. Patient notes that she is only had outpatient workup for this approximately a year ago however had recurrence of symptoms today. Workup today unremarkable. Laboratory studies including CBC, d-dimer, chemistry panel, troponin, serology panel unremarkable. Chest x-ray revealed no acute process. EKG showed a normal sinus rhythm without acute ST-T wave changes. Vital signs stable afebrile. At this time patient states all symptoms are resolved. Patient discharged home in stable condition with instructions to follow-up with her PCP. Discussed return precautions with patient and family who verbalizes agreement. Undiagnosed new problem with uncertain prognosis? @ -No Drug Therapy requiring intensive monitoring for toxicity (Heparin, Nitro, Insulin, Cardizem)? @ -No Were any procedures done? @ -No Diagnosis/symptom? @ -Seizures Acute, or Chronic, or Acute on Chronic? @ -Acute Uncomplicated (without systemic symptoms) or Complicated (systemic symptoms)? @ -Uncomplicated Side effects of treatment? @ -No Exacerbation, Progression, or Severe Exacerbation? @ -No Poses a threat to life or bodily function? How? (Chest pain, USA, [place], pneumonia, PE, COPD, DKA, ARF, appy, cholecystitis, CVA, Diverticulitis, Homicidal, Suicidal, threat to staff... and all critical care pts) @ -No (Sander Deng) - Lab Data Lab Results 04/22/23 04/22/23 04/22/23 Range/Units 16:25 16:25 16:25 WBC 9.6 (3.8-10.6) k/uL RBC 4.43 (3.80-5.40) m/uL Hgb 13.8 (11.4-16.0) gm/dL Hct 40.5 (34.0-46.0) % MCV 91.4 (80.0-100.0) fL MCH 31.2 (25.0-35.0) pg MCHC 34.1 (31.0-37.0) g/dL RDW 12.2 (11.5-15.5) % Plt Count 266 (150-450) k/uL MPV 7.8 D-Dimer 0.42 (<0.60) mg/L FEU Sodium 139 (137-145) mmol/L Potassium 4.3 (3.5-5.1) mmol/L Chloride 104 (98-107) mmol/L Carbon Dioxide 22 (22-30) mmol/L Anion Gap 13 mmol/L BUN 16 (7-17) mg/dL Creatinine 0.77 (0.52-1.04) mg/dL Est GFR (CKD-EPI)AfAm >90 (>60 ml/min/1.73 sqM) Est GFR (CKD-EPI)NonAf >90 (>60 ml/min/1.73 sqM) Glucose 93 (74-99) mg/dL Calcium 10.0 (8.4-10.2) mg/dL Total Bilirubin 0.5 (0.2-1.3) mg/dL AST 35 (14-36) U/L ALT 22 (4-34) U/L Alkaline Phosphatase 77 (38-126) U/L Troponin I (0.000-0.034) ng/mL Total Protein 7.9 (6.3-8.2) g/dL Albumin 5.1 H (3.5-5.0) g/dL Influenza Type A (PCR) (Not Detectd) Influenza Type B (PCR) (Not Detectd) RSV (PCR) (Not Detectd) SARS-CoV-2 (PCR) (Not Detectd) 04/22/23 04/22/23 Range/Units 16:25 16:25 WBC (3.8-10.6) k/uL RBC (3.80-5.40) m/uL Hgb (11.4-16.0) gm/dL Hct (34.0-46.0) % MCV (80.0-100.0) fL MCH (25.0-35.0) pg MCHC (31.0-37.0) g/dL RDW (11.5-15.5) % Plt Count (150-450) k/uL MPV D-Dimer (<0.60) mg/L FEU Sodium (137-145) mmol/L Potassium (3.5-5.1) mmol/L Chloride (98-107) mmol/L Carbon Dioxide (22-30) mmol/L Anion Gap mmol/L BUN (7-17) mg/dL Creatinine (0.52-1.04) mg/dL Est GFR (CKD-EPI)AfAm (>60 ml/min/1.73 sqM) Est GFR (CKD-EPI)NonAf (>60 ml/min/1.73 sqM) Glucose (74-99) mg/dL Calcium (8.4-10.2) mg/dL Total Bilirubin (0.2-1.3) mg/dL AST (14-36) U/L ALT (4-34) U/L Alkaline Phosphatase (38-126) U/L Troponin I <0.012 (0.000-0.034) ng/mL Total Protein (6.3-8.2) g/dL Albumin (3.5-5.0) g/dL Influenza Type A (PCR) Not Detected (Not Detectd) Influenza Type B (PCR) Not Detected (Not Detectd) RSV (PCR) Not Detected (Not Detectd) SARS-CoV-2 (PCR) Not Detected (Not Detectd) Disposition <Laura Flower - Last Filed: 04/22/23 15:25> Is patient prescribed a controlled substance at d/c from ED?: No Time of Disposition: 18:38 <Sander Deng - Last Filed: 04/22/23 18:38> Clinical Impression: Paresthesias Disposition: HOME SELF-CARE Condition: Good Additional Instructions: Please return to the Emergency Department if symptoms worsen or any other concerns. Follow up with your primary care provider. Referrals: Zeenat Bustillo MD [Primary Care Provider] - 1-2 days
[2023-04-22 17:04] LABS: ALT 22 U/L (4-34); AST 35 U/L (14-36); African American GFR (CKD) >90 (>60 ml/min/1.73 sqM); Albumin 5.1 g/dL (3.5-5.0); Alkaline Phosphatase 77 U/L (38-126); Anion Gap 13 mmol/L; Blood Urea Nitrogen 16 mg/dL (7-17); Carbon Dioxide 22 mmol/L (22-30); Chloride 104 mmol/L (98-107); Glucose 93 mg/dL (74-99); HCT 40.5 % (34.0-46.0); HGB 13.8 gm/dL (11.4-16.0); MCH 31.2 pg (25.0-35.0); MCHC 34.1 g/dL (31.0-37.0); MCV 91.4 fL (80.0-100.0); Mean Platelet Volume 7.8; Non-African American GFR(CKD) >90 (>60 ml/min/1.73 sqM); Platelet Count 266 k/uL (150-450); Potassium 4.3 mmol/L (3.5-5.1); RBC 4.43 m/uL (3.80-5.40); RDW 12.2 % (11.5-15.5); Sodium 139 mmol/L (137-145); Total Bilirubin 0.5 mg/dL (0.2-1.3); Total Protein 7.9 g/dL (6.3-8.2); WBC 9.6 k/uL (3.8-10.6)
--- NOTE | 2023-04-22 18:11 | XR ---
EXAMINATION TYPE: XR chest 2V DATE OF EXAM: 04/22/2023 COMPARISON: 09/14/2020 INDICATION: Dizziness TECHNIQUE: Frontal and lateral views of the chest are obtained. FINDINGS: The heart size is normal. The pulmonary vasculature is normal. The lungs are clear. IMPRESSION: 1. No acute pulmonary process.
[2023-04-22 19:11] VITALS: BP 131/97; PULSE 88; RESP 18
== END 2023-04-22 18:52 | disposition home or self-care (01) ==
LOC: EC 14:53
DX: R20.2 Paresthesia of skin (principal); I10 Essential (primary) hypertension; Z79.899 Other long term (current) drug therapy; Z88.8 Allergy status to other drugs, medicaments and biological substances; Z20.822 Contact with and (suspected) exposure to COVID-19
CPT/HCPCS: 36415; 71046; 80053; 84484; 85027; 85379; 87636; 93005; 99285

== ENCOUNTER → 2023-08-23 | Outpatient (CLI) | payer BC | END | disposition home or self-care (01) | LOC: LABWHC1 15:56 | PROVIDERS: ATTEND Family Medicine | DX: Z77.011 Contact with and (suspected) exposure to lead (principal) | CPT/HCPCS: 36415; 83655 ==

== ENCOUNTER → 2023-09-12 | Outpatient (CLI) | payer BC ==
--- NOTE | 2023-09-12 11:34 | MM ---
Reason for Exam: Follow-up at short interval from prior study. Last screening mammogram was performed 6 month(s) ago. Patient History: Menarche at age 11. Premenopausal. Paternal grandmother had ovarian cancer. Prior Study Comparison: 03/15/2023 Bilateral MG 3D diag mammo w/cad [facility], [facility]. Tissue Density: Left: The breasts are heterogeneously dense, which may obscure small masses. Findings: Analyzed By CAD. Upper-outer quadrant nodularity posterior depth remains unchanged for 6 months. Findings suggest intramammary lymph node. An additional short interval follow-up can be performed. No suspicious microcalcification or other discrete abnormality is seen. Overall Assessment: Probably benign, BI-RAD 3 Management: Diagnostic Mammogram of both breasts in 6 months. Total one-year follow-up left breast and annual exam of the right breast. Results were given to the patient verbally at the time of exam. Patient should continue monthly self-breast exams. A clinical breast exam by your physician is recommended on an annual basis. This exam should not preclude additional follow-up of suspicious palpable abnormalities. Electronically signed and approved by: Niels Hemphill M.D. Radiologist
== END | disposition home or self-care (01) ==
LOC: RADMAMWWP 10:35
PROVIDERS: ATTEND Family Medicine
DX: R92.332 Mammographic heterogeneous density, left breast (principal)
CPT/HCPCS: 77061; 77065

== ENCOUNTER 2023-11-09 07:03 | Day surgery (SDC) | payer BC ==
[~2023-11-09 07:03] MED LIST: LIDOCAINE 1% (10MG/ML) FOR IV START INTRADERMA PRN
[2023-11-09 07:32] VITALS: TEMP 98
[2023-11-09] MEDS: LACTATED RINGERS 1,000 ML IV SCH (07:45)
[2023-11-09] MEDS: IV FLUID CONTINUATION 1,000 ML IV ONE (07:46)
[2023-11-09] MEDS ORDERED: PROPOFOL 10 MG/ML 20 ML VIAL IV ONE (08:32)
--- NOTE | 2023-11-09 08:52 | P.PCN ---
Date of Procedure: 11/09/23 Procedure(s) Performed: BRIEF HISTORY: Patient is a 32-year-old pleasant white female scheduled for an elective colonoscopy as a part of evaluation of intermittent rectal bleeding for the last few months duration. PROCEDURE PERFORMED: Colonoscopy with cold snare polypectomy. PREOPERATIVE DIAGNOSIS: Intermittent rectal bleeding. IV sedation per Anesthesia. PROCEDURE: After informed consent was obtained, the patient, was brought into the endoscopy unit. IV sedation was administered by Anesthesia under continuous monitoring. Digital rectal examination was normal. Initially the Olympus CF-160 flexible video colonoscope was then inserted in the rectum, gradually advanced into the cecum without any difficulty. Careful examination was performed as the scope was gradually being withdrawn. Ileocecal valve and the appendiceal orifice were visualized and appeared normal. Prep was excellent. Mucosa of the cecum, and a 7 mm flat cecal polyp status post cold snare polypectomy. Rest of the ascending colon, transverse colon, descending colon, sigmoid colon, and rectum appeared normal. Retroflexion was performed in the rectum and small internal hemorrhoid were seen. The patient tolerated the procedure well. IMPRESSION: 7 to 8 mm flat cecal polyp status post cold snare polypectomy Small internal hemorrhoids RECOMMENDATIONS: Findings of this examination were discussed with the patient as well as her family.. She was advised to be on high-fiber diet and take fiber supplements on regular basis. Follow-up with the biopsy results. If the biopsy reveals adenoma she can have repeat colonoscopy in 5 years
[2023-11-09 09:14] VITALS: BP 123/82; PULSE 75; RESP 16
== END 2023-11-09 09:29 | disposition home or self-care (01) ==
LOC: ORWHC2ENDO 07:03
PROVIDERS: ATTEND Internal Medicine Gastroenterology
DX: K62.5 Hemorrhage of anus and rectum
CPT/HCPCS: 81025; 45385; J2704; 88305

== ENCOUNTER → 2024-04-24 | Outpatient (CLI) | payer BC ==
--- NOTE | 2024-04-24 10:31 | MM ---
Reason for Exam: Follow-up at short interval from prior study. Last mammogram was performed 1 year(s) and 1 month(s) ago. Patient History: Menarche at age 11. Premenopausal. Paternal grandmother had ovarian cancer. Last menstrual period: 04/22/2024 Risk Values: Symone 5 year model risk: 0.2%. NCI Lifetime model risk: 7.5%. Prior Study Comparison: 03/15/2023 Bilateral MG 3D diag mammo w/cad [facility]. 03/15/2023 Bilateral US breast limited [facility], [facility]. 09/12/2023 Left MG 3D diag mammo w/cad [facility], [facility]. Tissue Density: The breasts are heterogeneously dense, which may obscure small masses. Findings: Analyzed By CAD. Stable circumscribed 1 cm mass towards the left axilla favoring benign lymph node. No new concerning masses or suspicious cluster of microcalcifications bilaterally. Overall Assessment: Negative, BI-RAD 1 Management: Screening Mammogram of both breasts at age 38. . Results were given to the patient verbally at the time of exam. Patient should continue monthly self-breast exams. A clinical breast exam by your physician is recommended on an annual basis. This exam should not preclude additional follow-up of suspicious palpable abnormalities. Note on Symone scores and lifetime risk: 1. A Symone score greater than 3% is considered moderate risk. If this is the case, consider specialist referral to assess eligibility for a risk reducing agent. 2. If overall lifetime risk for the development of breast cancer is 20% or higher, the patient may qualify for future screening with alternating mammogram and breast MRI. [facility], , 04/24/2024 10:28 AM. Electronically signed and approved by: Fritz Zamorano M.D.
== END | disposition home or self-care (01) ==
LOC: RADMAMWWP 09:38
PROVIDERS: ATTEND Family Medicine
DX: R92.8 Other abnormal and inconclusive findings on diagnostic imaging of breast (principal); R92.333 Mammographic heterogeneous density, bilateral breasts
CPT/HCPCS: 77062; 77066